=== PATIENT | female | born 1970 | race Caucasian/White ===

== ENCOUNTER 2019-05-24 16:50 | Observation (INO) | payer OTHER ==
[~2019-05-24] VITALS: Ht 160 cm; Wt 113.4 kg
[~2019-05-24 16:50] MED LIST: CRUTCH4 USE; HYDACE5 PO; IBUP800; IBUP800 PO; Imitrex25 MG PO; META800 PO; NAPR500 PO
[2019-05-24 17:38] LABS: BASOPHILS ABSOLUTE AUTO 0.03 K/mm3 (0.00-0.23); BASOPHILS PERCENT AUTO 1 % (0-2); EOSINOPHILS ABSOLUTE AUTO 0.13 K/mm3 (0.00-0.68); EOSINOPHILS PERCENT AUTO 3 % (0-6); Hematocrit 24.3 % (33.0-51.0); Hemoglobin 6.9 g/dL (11.5-16.0); IMMATURE GRAN ABSOLUTE AUTO 0.02 K/mm3 (0.00-0.10); IMMATURE GRAN PERCENT AUTO 0 % (0-1); LYMPHOCYTES ABSOLUTE AUTO 1.32 K/mm3 (0.84-5.20); LYMPHOCYTES PERCENT AUTO 28 % (21-46); MONOCYTES PERCENT AUTO 6 % (4-13); Mean Corpuscular HGB 21.3 pg (26.0-34.0); Mean Corpuscular HGB Conc 28.4 g/dL (31.5-36.5); Mean Corpuscular Volume 75 fL (80-100); Mean Platelet Volume 10.8 fL (9.1-12.4); NEUTROPHILS ABSOLUTE AUTO 2.96 K/mm3 (1.96-9.15); NEUTROPHILS PERCENT AUTO 62 % (41-73); Platelet Count 205 K/mm3 (150-400); RDW Coefficient Variation 21.3 % (11.7-14.2); RDW Standard Deviation 57.6 fL (35.1-46.3); Red Blood Cell Count 3.24 M/mm3 (3.80-5.20); White Blood Cell Count 4.76 K/mm3 (4.00-11.30)
[2019-05-24 18:07] LABS: Alanine Aminotransfer (ALT/SGP 16 U/L (12-78); Albumin, Blood 2.8 g/dL (3.4-5.0); Albumin/Globulin Ratio 0.9 (0.8-1.8); Alk Phos 84 U/L (50-136); Anion Gap 6 mmol/L (6-16); Aspartate Aminotrans (AST/SGOT 8 U/L (12-37); Bilirubin, Total 0.1 mg/dL (0.1-1.0); Blood Urea Nitrogen 11 mg/dL (8-24); Bun/Creatinine Ratio 10.9 (12.0-20.0); CO2, Blood 26 mmol/L (21-32); Calcium, Blood 8.5 mg/dL (8.5-10.1); Chloride, Blood 113 mmol/L (98-108); Creatinine, Blood 1.01 mg/dL (0.40-1.00); Globulin, Blood 3.2 g/dL (2.2-4.0); Glomerular Filtration Rate >60 (60-); Glucose, Blood 93 mg/dL (70-99); Potassium, Blood 3.6 mmol/L (3.5-5.5); Sodium, Blood 145 mmol/L (136-145)
--- NOTE | 2019-05-24 22:00 | NUR ---
BP: PT BP NOTED ELEVATED, TRENDING UP, 185/109, PT ASYMPTOMATIC. MD NOTIFIED, VITALS REVIEWED, NEW ORDER FOR METOPROLOL XL RECEIVED. PLAN TO MEDICATED AND CONT TO MONITOR.
--- NOTE | 2019-05-24 22:40 | NUR ---
FIRST UNIT OF PRBC COMPLETED. PT KHALIDA WELL, LUNGS CLEAR T/O. BP CONT TO BE ELEVATED, PT ASYMPTOMATIC. PLAN TO START SECOND UNIT PER ORDERS.
--- NOTE | 2019-05-25 02:11 | NUR ---
SECOND UNIT OF PRBC COMPLETED. PT KHALIDA WELL. MIVF STARTED PER ORDERS.
[2019-05-25 04:13] LABS: BASOPHILS ABSOLUTE AUTO 0.04 K/mm3 (0.00-0.23); BASOPHILS PERCENT AUTO 1 % (0-2); EOSINOPHILS ABSOLUTE AUTO 0.18 K/mm3 (0.00-0.68); EOSINOPHILS PERCENT AUTO 3 % (0-6); Hematocrit 26.9 % (33.0-51.0); IMMATURE GRAN ABSOLUTE AUTO 0.02 K/mm3 (0.00-0.10); IMMATURE GRAN PERCENT AUTO 0 % (0-1); LYMPHOCYTES ABSOLUTE AUTO 1.44 K/mm3 (0.84-5.20); LYMPHOCYTES PERCENT AUTO 24 % (21-46); MONOCYTES ABSOLUTE AUTO 0.44 K/mm3 (0.16-1.47); MONOCYTES PERCENT AUTO 7 % (4-13); Mean Corpuscular HGB 22.4 pg (26.0-34.0); Mean Corpuscular HGB Conc 29.7 g/dL (31.5-36.5); Mean Corpuscular Volume 75 fL (80-100); NEUTROPHILS ABSOLUTE AUTO 3.87 K/mm3 (1.96-9.15); NEUTROPHILS PERCENT AUTO 65 % (41-73); Platelet Count 210 K/mm3 (150-400); RDW Coefficient Variation 21.1 % (11.7-14.2); Red Blood Cell Count 3.57 M/mm3 (3.80-5.20); White Blood Cell Count 5.99 K/mm3 (4.00-11.30)
--- NOTE | 2019-05-25 07:20 | NUR ---
PT HAD NO ACUTE CHANGES T/O NIGHT; BP REMAINS ELEVATED, PT ASYMPTOMATIC. PT KHALIDA TRANSFUSIONS WELL. PT HAD ONLY SCANT VAGINAL BLEEDING, VERY LIGHT SPOTTING ON LICO PAD. PT DENIES DIZZINESS WHEN UP. MIVF CONT PER ORDERS. PT USING CALL LIGHT FOR ASSISTANCE, REP GIVEN TO DAY RN.
[2019-05-25] MEDS ORDERED: FERSU300 PO (08:38)
[2019-05-25] MEDS ORDERED: METO100ER PO (08:39)
[2019-05-25] MEDS ORDERED: Microgestin Fe1 EAC1 PO (08:40)
--- NOTE | 2019-05-25 12:16 | NUR ---
BP CONT. TO BE ELEVATED AT 181/93, HR 72 AFTER HYDRALAZINE GIVEN, DR. Diana ÁLVAREZ NOTIFIED, PT WANTS TO GO HOME, METOPROLOL 50MG PO ORDERED TO BE GIVEN PRIOR TO DC, PT HAS F/U APPT. W/ DR. BROWN AT 0815 IN AM, PT NOTIFIED.
== END 2019-05-25 14:30 | disposition home or self-care (01) ==
LOC: ER 16:50 → SURS 16:51 → ER 18:48 → SURS 18:48
PROVIDERS: Emergency Medicine; ADMIT Obstetrics & Gynecology
DX: N80.0 Endometriosis of uterus (principal); D50.9 Iron deficiency anemia, unspecified; I10 Essential (primary) hypertension; G43.909 Migraine, unspecified, not intractable, without status migrainosus; Z88.8 Allergy status to other drugs, medicaments and biological substances
CPT/HCPCS: 36415; 36430; 76830; 76856; 80053; 84703; 85025; 86850; 86900; 86901; 86923; 96360; 96361; 99285-25; J0360; J7030; J7120; P9016

== ENCOUNTER 2019-05-28 15:10 | Emergency (ER) | payer OTHER ==
[~2019-05-28] VITALS: Ht 157.5 cm; Wt 113.4 kg
[~2019-05-28 15:10] MED LIST changes: +FERSU300 PO; +METO100ER PO; +Microgestin Fe1 EAC1 PO
[2019-05-28 15:43] LABS: BASOPHILS ABSOLUTE AUTO 0.05 K/mm3 (0.00-0.23); BASOPHILS PERCENT AUTO 1 % (0-2); EOSINOPHILS ABSOLUTE AUTO 0.25 K/mm3 (0.00-0.68); EOSINOPHILS PERCENT AUTO 4 % (0-6); Hematocrit 29.5 % (33.0-51.0); Hemoglobin 8.7 g/dL (11.5-16.0); IMMATURE GRAN ABSOLUTE AUTO 0.02 K/mm3 (0.00-0.10); IMMATURE GRAN PERCENT AUTO 0 % (0-1); LYMPHOCYTES ABSOLUTE AUTO 1.57 K/mm3 (0.84-5.20); LYMPHOCYTES PERCENT AUTO 22 % (21-46); MONOCYTES PERCENT AUTO 7 % (4-13); Mean Corpuscular HGB 22.5 pg (26.0-34.0); Mean Corpuscular HGB Conc 29.5 g/dL (31.5-36.5); Mean Corpuscular Volume 76 fL (80-100); Mean Platelet Volume 10.9 fL (9.1-12.4); NEUTROPHILS PERCENT AUTO 66 % (41-73); Platelet Count 233 K/mm3 (150-400); RDW Coefficient Variation 21.1 % (11.7-14.2); Red Blood Cell Count 3.87 M/mm3 (3.80-5.20); White Blood Cell Count 7.09 K/mm3 (4.00-11.30)
[2019-05-28 16:41] LABS: Alanine Aminotransfer (ALT/SGP 20 U/L (12-78); Albumin/Globulin Ratio 0.9 (0.8-1.8); Alk Phos 84 U/L (50-136); Anion Gap 7 mmol/L (6-16); Aspartate Aminotrans (AST/SGOT 13 U/L (12-37); Bilirubin, Total 0.5 mg/dL (0.1-1.0); Blood Urea Nitrogen 14 mg/dL (8-24); Bun/Creatinine Ratio 14.6 (12.0-20.0); CO2, Blood 22 mmol/L (21-32); Calcium, Blood 8.2 mg/dL (8.5-10.1); Chloride, Blood 112 mmol/L (98-108); Creatinine, Blood 0.96 mg/dL (0.40-1.00); Globulin, Blood 3.4 g/dL (2.2-4.0); Glomerular Filtration Rate >60 (60-); Glucose, Blood 102 mg/dL (70-99); Potassium, Blood 3.9 mmol/L (3.5-5.5); Sodium, Blood 141 mmol/L (136-145); Total Protein, Blood 6.4 g/dL (6.4-8.2)
[2019-05-28] MEDS ORDERED: MEDR5 PO (17:48)
[2019-05-28 18:04] LABS: Percent Saturation 4.7 % (15.0-50.0)
[2019-05-28 18:17] LABS: Source, Urine Clean Catch
[2019-05-28 18:20] LABS: Bilirubin, Urine Neg (Neg); Blood, Urine 5+ (Neg); Glucose Qualitative, Urine Neg (Neg); Ketones, Urine Neg (Neg); Leukocyte Esterase, Urine 1+ (Neg); Nitrite, Urine Neg (Neg); Protein, Urine Neg (Neg); Urobilinogen, Urine NORM (Normal)
[2019-05-28 18:32] LABS: Appearance, Urine Hazy (Clear); Color, Urine Yellow (P-Yellow)
[2019-05-28 18:34] LABS: Red Blood Cells, Urine TNTC /hpf (0-2); Squamous Epithelial Cells Few /hpf (Few)
[2019-05-28 18:35] LABS: Bacteria Few /hpf
== END 2019-05-28 18:15 | disposition home or self-care (01) ==
LOC: ER 15:10
PROVIDERS: Emergency Medicine; Physician Assistant
DX: N93.9 Abnormal uterine and vaginal bleeding, unspecified (principal); D64.9 Anemia, unspecified; Z88.1 Allergy status to other antibiotic agents; Z88.8 Allergy status to other drugs, medicaments and biological substances; Z79.899 Other long term (current) drug therapy
CPT/HCPCS: 36415; 80053; 81001; 83540; 83550; 85025; 87086; 99284

== ENCOUNTER → 2021-03-03 | Outpatient (CLI) | payer OTHER ==
[~2021-03-03] MED LIST changes: +MEDR5 PO; +Ventolin/Prove6.7 GM INH
[2021-03-03 18:43] LABS: BASOPHILS ABSOLUTE AUTO 0.03 K/mm3 (0.00-0.23); BASOPHILS PERCENT AUTO 1 % (0-2); EOSINOPHILS ABSOLUTE AUTO 0.15 K/mm3 (0.00-0.68); EOSINOPHILS PERCENT AUTO 2 % (0-6); Hematocrit 26.3 % (33.0-51.0); IMMATURE GRAN ABSOLUTE AUTO 0.03 K/mm3 (0.00-0.10); IMMATURE GRAN PERCENT AUTO 1 % (0-1); LYMPHOCYTES ABSOLUTE AUTO 1.32 K/mm3 (0.84-5.20); LYMPHOCYTES PERCENT AUTO 20 % (21-46); MONOCYTES ABSOLUTE AUTO 0.59 K/mm3 (0.16-1.47); MONOCYTES PERCENT AUTO 9 % (4-13); Mean Corpuscular HGB 16.6 pg (26.0-34.0); Mean Corpuscular HGB Conc 26.6 g/dL (31.5-36.5); Mean Corpuscular Volume 62 fL (80-100); NEUTROPHILS PERCENT AUTO 68 % (41-73); Platelet Count 257 K/mm3 (150-400); RDW Coefficient Variation 20.2 % (11.7-14.2); RDW Standard Deviation 44.7 fL (35.1-46.3); Red Blood Cell Count 4.22 M/mm3 (3.80-5.20); White Blood Cell Count 6.62 K/mm3 (4.00-11.30)
[2021-03-03 18:52] LABS: Albumin, Blood 3.4 g/dL (3.4-5.0); Albumin/Globulin Ratio 0.9 (0.8-1.8); Bilirubin, Total 0.6 mg/dL (0.1-1.0); Bun/Creatinine Ratio 11.4 (12.0-20.0); Creatinine, Blood 1.23 mg/dL (0.40-1.00); Globulin, Blood 3.9 g/dL (2.2-4.0); Potassium, Blood 4.1 mmol/L (3.5-5.5); Total Protein, Blood 7.3 g/dL (6.4-8.2)
== END | disposition home or self-care (01) ==
LOC: LAB 16:00 → LAB SHORT 16:00
PROVIDERS: Family Medicine
DX: R10.13 Epigastric pain (principal)
CPT/HCPCS: 80053; 83690; 85025

== ENCOUNTER 2021-03-04 13:01 | Emergency (ER) | payer OTHER ==
[~2021-03-04] VITALS: Ht 157.5 cm; Wt 97.5 kg
[~2021-03-04 13:01] MED LIST changes: -Ventolin/Prove6.7 GM INH
[2021-03-04] MEDS ORDERED: Ventolin/Prove6.7 GM INH (13:46)
[2021-03-04 13:52] LABS: BASOPHILS ABSOLUTE AUTO 0.06 K/mm3 (0.00-0.23); BASOPHILS PERCENT AUTO 1 % (0-2); EOSINOPHILS ABSOLUTE AUTO 0.19 K/mm3 (0.00-0.68); EOSINOPHILS PERCENT AUTO 3 % (0-6); Hematocrit 27.9 % (33.0-51.0); Hemoglobin 7.4 g/dL (11.5-16.0); IMMATURE GRAN ABSOLUTE AUTO 0.01 K/mm3 (0.00-0.10); IMMATURE GRAN PERCENT AUTO 0 % (0-1); IMMATURE RETIC FRACTION 21.7 % (2.3-16.0); LYMPHOCYTES ABSOLUTE AUTO 1.14 K/mm3 (0.84-5.20); LYMPHOCYTES PERCENT AUTO 18 % (21-46); MONOCYTES PERCENT AUTO 6 % (4-13); Mean Corpuscular HGB 16.7 pg (26.0-34.0); Mean Corpuscular HGB Conc 26.5 g/dL (31.5-36.5); Mean Corpuscular Volume 63 fL (80-100); NEUTROPHILS ABSOLUTE AUTO 4.66 K/mm3 (1.96-9.15); NEUTROPHILS PERCENT AUTO 72 % (41-73); Platelet Count 271 K/mm3 (150-400); RDW Standard Deviation 43.8 fL (35.1-46.3); RETIC HGB EQUIVALENT 16.1 pg (28.20-36.60); RETICULOCYTE ABSOLUTE 0.0594 M/mm3 (0.0200-0.1100); RETICULOCYTE COUNT PERCENT 1.35 % (0.50-2.50); Red Blood Cell Count 4.44 M/mm3 (3.80-5.20); White Blood Cell Count 6.46 K/mm3 (4.00-11.30)
[2021-03-04 13:56] LABS: Albumin, Blood 3.4 g/dL (3.4-5.0); Albumin/Globulin Ratio 0.9 (0.8-1.8); Bilirubin, Total 0.5 mg/dL (0.1-1.0); Bun/Creatinine Ratio 10.8 (12.0-20.0); Calcium, Blood 8.9 mg/dL (8.5-10.1); Creatinine, Blood 1.2 mg/dL (0.40-1.00); Globulin, Blood 3.6 g/dL (2.2-4.0); Potassium, Blood 3.9 mmol/L (3.5-5.5)
[2021-03-04 13:57] LABS: Mean Platelet Volume 10.5 fL (9.1-12.4)
[2021-03-04 13:59] LABS: Percent Saturation 2.8 % (15.0-50.0)
== END 2021-03-04 14:26 | disposition home or self-care (01) ==
LOC: ER 13:01
PROVIDERS: Physician Assistant
DX: D64.9 Anemia, unspecified (principal); I10 Essential (primary) hypertension
CPT/HCPCS: 36415; 80053; 83540; 83550; 85025; 85045; 86850; 86900; 86901; 99283

== ENCOUNTER 2021-11-15 05:56 | Inpatient (IN) | payer OTHER ==
[~2021-11-15] VITALS: Ht 157.5 cm; Wt 102.2 kg
[~2021-11-15 05:56] MED LIST changes: +Ventolin/Prove6.7 GM INH
[2021-11-15 06:17] LABS: BASOPHILS ABSOLUTE AUTO 0.04 K/mm3 (0.00-0.23); BASOPHILS PERCENT AUTO 1 % (0-2); EOSINOPHILS ABSOLUTE AUTO 0.22 K/mm3 (0.00-0.68); EOSINOPHILS PERCENT AUTO 3 % (0-6); Hematocrit 29.9 % (33.0-51.0); Hemoglobin 8.3 g/dL (11.5-16.0); IMMATURE GRAN ABSOLUTE AUTO 0.02 K/mm3 (0.00-0.10); IMMATURE GRAN PERCENT AUTO 0 % (0-1); LYMPHOCYTES PERCENT AUTO 18 % (21-46); MONOCYTES ABSOLUTE AUTO 0.48 K/mm3 (0.16-1.47); MONOCYTES PERCENT AUTO 7 % (4-13); Mean Corpuscular HGB 18.7 pg (26.0-34.0); Mean Corpuscular HGB Conc 27.8 g/dL (31.5-36.5); Mean Corpuscular Volume 67 fL (80-100); NEUTROPHILS ABSOLUTE AUTO 5.05 K/mm3 (1.96-9.15); NEUTROPHILS PERCENT AUTO 71 % (41-73); Platelet Count 210 K/mm3 (150-400); RDW Standard Deviation 47.1 fL (35.1-46.3); Red Blood Cell Count 4.44 M/mm3 (3.80-5.20); White Blood Cell Count 7.11 K/mm3 (4.00-11.30)
[2021-11-15 06:22] LABS: Mean Platelet Volume 11.1 fL (9.1-12.4)
[2021-11-15 06:41] LABS: Albumin, Blood 2.4 g/dL (3.4-5.0); Albumin/Globulin Ratio 0.7 (0.8-1.8); Bilirubin, Total 1.2 mg/dL (0.1-1.0); Bun/Creatinine Ratio 16.8 (12.0-20.0); Calcium, Blood 8.8 mg/dL (8.5-10.1); Creatinine, Blood 1.07 mg/dL (0.40-1.00); Globulin, Blood 3.3 g/dL (2.2-4.0); Potassium, Blood 3.8 mmol/L (3.5-5.5); Total Protein, Blood 5.7 g/dL (6.4-8.2); Troponin I 0.039 ng/mL (0.000-0.040)
[2021-11-15 11:58] LABS: Anti-Xa UFH, PHA Monitoring <0.10 IU/mL; International Normalized Ratio 1.29; Prothrombin Time Results 13.3 Sec (9.7-11.5)
[2021-11-15 12:48] LABS: Percent Saturation 5.8 % (15.0-50.0)
--- NOTE | 2021-11-15 15:04 | NUR ---
Echocardiogram completed.
--- NOTE | 2021-11-15 17:45 | NUR ---
pt arrived to 309 via gurney from ed. report obtained, pt is a/ox3, pleasant and cooperative with care, able to stand and transfer to bsc indep, lungs are clear, slightly course in bases, on r/a, resp even and unlabored, no cough noted, hrr, will place tele on, was reported that she was sr with pvc's, 3+ edema noted to b/l le, cap refill <4 sec, vs stable, afebrile, iv infusing heperin gtt as ordered, btx4, last bm yesterday, voids without diff, skin c/w/d, shirley cee, oriented to room layout and call system. call light in reach.
--- NOTE | 2021-11-15 23:26 | NUR ---
TRANSFER: PATIENT HAS A CRITICAL TROPONIN OF 1.42, HEART RATE AND BLOOD PRESSURE WERE TRENDING UPWARDS. PATIENT IS DIAPHORETIC WITH NO COMPLAINTS OF CHEST PAIN. DR CROUCH IS NOTIFIED. ORDERS TO TRANSFER PATIENT TO ICU, NPO AND A CARDIOLOGY CONSULT FOR THE MORNING. REPORT WAS CALLED TO ELLIE CALLAHAN IN PCU.
[2021-11-15 23:54] LABS: U Amphetamine Screen DETECTED; U Methamphetamine Screen DETECTED
[2021-11-15 23:55] LABS: U Barbituate Screen Not Detected; U Benzodiazapine Screen Not Detected; U Buprenorphine Screen Not Detected; U Cannabinoids Screen Not Detected; U Cocaine Screen Not Detected; U Methadone Screen Not Detected; U Opiates Screen Not Detected; U Oxycodone Screen Not Detected; U Phencyclidine Screen Not Detected; U Propoxyphene Screen Not Detected
[2021-11-16 02:26] LABS: BASOPHILS ABSOLUTE AUTO 0.05 K/mm3 (0.00-0.23); BASOPHILS PERCENT AUTO 1 % (0-2); EOSINOPHILS PERCENT AUTO 3 % (0-6); Hematocrit 29.8 % (33.0-51.0); Hemoglobin 8.6 g/dL (11.5-16.0); IMMATURE GRAN ABSOLUTE AUTO 0.02 K/mm3 (0.00-0.10); IMMATURE GRAN PERCENT AUTO 0 % (0-1); LYMPHOCYTES ABSOLUTE AUTO 1.49 K/mm3 (0.84-5.20); LYMPHOCYTES PERCENT AUTO 19 % (21-46); MONOCYTES ABSOLUTE AUTO 0.63 K/mm3 (0.16-1.47); MONOCYTES PERCENT AUTO 8 % (4-13); Mean Corpuscular HGB 18.9 pg (26.0-34.0); Mean Corpuscular HGB Conc 28.9 g/dL (31.5-36.5); Mean Corpuscular Volume 66 fL (80-100); NEUTROPHILS ABSOLUTE AUTO 5.47 K/mm3 (1.96-9.15); NEUTROPHILS PERCENT AUTO 70 % (41-73); Platelet Count 232 K/mm3 (150-400); RDW Coefficient Variation 20.3 % (11.7-14.2); RDW Standard Deviation 46.4 fL (35.1-46.3); Red Blood Cell Count 4.54 M/mm3 (3.80-5.20); White Blood Cell Count 7.86 K/mm3 (4.00-11.30)
[2021-11-16 02:47] LABS: Alanine Aminotransfer (ALT/SGP 39 U/L (12-78); Albumin, Blood 2.5 g/dL (3.4-5.0); Albumin/Globulin Ratio 0.8 (0.8-1.8); Alk Phos 99 U/L (50-136); Anion Gap 8 mmol/L (6-16); Aspartate Aminotrans (AST/SGOT 31 U/L (12-37); Blood Urea Nitrogen 23 mg/dL (8-24); Bun/Creatinine Ratio 17.3 (12.0-20.0); CHOL/HDL RATIO 3.8; CO2, Blood 24 mmol/L (21-32); Calcium, Blood 8.9 mg/dL (8.5-10.1); Chloride, Blood 108 mmol/L (98-108); Cholesterol 125 mg/dL (50-200); Creatinine, Blood 1.33 mg/dL (0.40-1.00); Globulin, Blood 3.3 g/dL (2.2-4.0); Glomerular Filtration Rate 42 (60-); Glucose, Blood 103 mg/dL (70-99); HDL Cholesterol 33 mg/dL (>39); LDL/HDL RATIO 2.3; Low Density Lipoprotein Chol 76 mg/dL (0-110); Magnesium, Blood 1.6 mg/dL (1.6-2.4); Potassium, Blood 3.9 mmol/L (3.5-5.5); Sodium, Blood 140 mmol/L (136-145); Total Protein, Blood 5.8 g/dL (6.4-8.2); Triglycerides 81 mg/dL (30-160); Very Low Density Lipoprot Chol 16 mg/dL (6-32)
--- NOTE | 2021-11-16 05:17 | NUR ---
PATIENT ARRIVED AT 2328 THIS EVENING ABLE TO TRANSFER TO BED, HEP GTT RUNNING AT 15U/KG/ML AROUND 0200 HEP GTT WAS INCREASED TO 17U/KG/ML WITH A 2000 BOLUS, PATIENT IV(S) FAILED AND A SAM POWERGLIDE WAS INSERTED BY JUAN, PULLMAN CONDUCTOR NURSE, PATIENT REQUESTED THAT HER MOTHER BOBBY BE CALLED AT [phone] TO INFORM HER THAT SHE HAS BEEN ADMITTED TO PCU FROM MEDICAL FLOOR, I WAS ABLE TO GET A HOLD OF BOBBY TO INFORM HER THAT MEI HAS BEEN ADMITTED. LUNGS ARE COARSE UPPER LOBES AND DIMINISHED LOWER LOBES, ABDOMEN IS DISTENDED SOFT NONTENDER HYPOACTIVE BOWEL TONES, CURRENTLY IS NPO, NO EDEMA NOTED AND SKIN IS INTACT, PATIENT TOXICOLOGY SCREEN CAME BACK POSITIVE, PLEASE REFER TO LABS, PATIENT WAS HYPERTENSIVE PRIOR TO TRANSFERRING, VITALS HAVE BEEN STABLE NO PRN PERMISSIVE HTN NOTED IN MAR WILL REFER TO DAYSHIFT, CARDIOLOGY CONSULT WAS CALLED IN PRIOR TO TRANSFER AND CONFIRMED BY ORDER. PATIENT IS ALERT, FLAT AFFECT, ACCUSATORY AT TIMES, AND TEARFUL. TALKING SOFT AND SLOW SEEMS TO REASSURE HER AND MAKES A DIFFERENCE, OTHERWISE VERY PLEASANT AND FOLLOW COMMANDS,
[2021-11-16 12:28] LABS: Influenza A, PCR NEGATIVE (NEGATIVE); Influenza B, PCR NEGATIVE (NEGATIVE); Resp Syncytial Virus, PCR NEGATIVE (NEGATIVE)
[2021-11-16 12:38] LABS: SARS-Cov-2 (COVID-19) PCR, MMC POSITIVE (NEGATIVE)
--- NOTE | 2021-11-16 18:47 | NUR ---
PHARMACY CONTACTED THIS RN ABOUT HEPARIN GTT. HEPARIN TO REMAIN AT 19U/KG/HR.
--- NOTE | 2021-11-16 19:08 | NUR ---
SHIFT SUMMARY PT A/O X4 AND COOPERATIVE OF CARE. PT HAS FLAT AFFECT AND SEEMS WITHDRAWN. ANSWERS QUESTIONS BRIEF BUT APPROPIATE. PT CALLS APPROPIATLEY. VSS T/O SHIFT WITH O2 SATS >97% 2L NC. O2 TITIRATED TO 1L NC. PT WAS NPO AWAITING ANGIO, COVID TEST DONE PRIOR TO PRCEDURE, CAME BACK COVID POSITIVE. ANGIO RESCHEDULED FOR AM ON 11/17/21. PT HAD DINNER AND TO BE NPO AFTER MIDNIGHT FOR PROCEDURE. NO REPORTS OF CHEST PAIN/PRESSURE T/O SHIFT. NO REPORT OF DYSPNEA/SOB T/O SHIFT. PT UP TO BEDSIDE COMMODE WITH SBA, TOLERATED WELL.
[2021-11-17 02:21] LABS: BASOPHILS ABSOLUTE AUTO 0.05 K/mm3 (0.00-0.23); BASOPHILS PERCENT AUTO 1 % (0-2); EOSINOPHILS PERCENT AUTO 4 % (0-6); Hematocrit 29.8 % (33.0-51.0); Hemoglobin 8.6 g/dL (11.5-16.0); IMMATURE GRAN ABSOLUTE AUTO 0.03 K/mm3 (0.00-0.10); IMMATURE GRAN PERCENT AUTO 0 % (0-1); LYMPHOCYTES ABSOLUTE AUTO 1.69 K/mm3 (0.84-5.20); LYMPHOCYTES PERCENT AUTO 22 % (21-46); MONOCYTES PERCENT AUTO 10 % (4-13); Mean Corpuscular HGB Conc 28.9 g/dL (31.5-36.5); Mean Corpuscular Volume 66 fL (80-100); NEUTROPHILS ABSOLUTE AUTO 4.84 K/mm3 (1.96-9.15); NEUTROPHILS PERCENT AUTO 63 % (41-73); Platelet Count 241 K/mm3 (150-400); RDW Coefficient Variation 20.6 % (11.7-14.2); RDW Standard Deviation 47.1 fL (35.1-46.3); Red Blood Cell Count 4.52 M/mm3 (3.80-5.20); White Blood Cell Count 7.71 K/mm3 (4.00-11.30)
[2021-11-17 02:24] LABS: Mean Platelet Volume 10.9 fL (9.1-12.4)
[2021-11-17 02:38] LABS: Albumin, Blood 2.4 g/dL (3.4-5.0); Albumin/Globulin Ratio 0.7 (0.8-1.8); Bilirubin, Total 0.9 mg/dL (0.1-1.0); Bun/Creatinine Ratio 13.6 (12.0-20.0); Calcium, Blood 8.9 mg/dL (8.5-10.1); Creatinine, Blood 1.32 mg/dL (0.40-1.00); Globulin, Blood 3.3 g/dL (2.2-4.0); Potassium, Blood 3.7 mmol/L (3.5-5.5); Total Protein, Blood 5.7 g/dL (6.4-8.2)
--- NOTE | 2021-11-17 06:07 | NUR ---
PER PHARMACY, PT HAS LATEX ALLERGY AND FENTANYL HAD A LATEX RUBBER STOPPER. DR FINK NOTIFIED AND STATES TO GIVE FENTANYL DIRECTED PRN. SINDY WINTER
--- NOTE | 2021-11-17 09:28 | NUR ---
MORNING UPDATE AT [facility] 0815, THIS RN ENTERED PT ROOM FOR MORNING VITALS, ASSESSMENT AND MEDICATIONS. WHILE TAKING PT VITALS, PT WAS HEARD "TAKE IT OFF NOW." PT HAD ARM WITH BP CUFF EXTENDED AND ONCE AGIAN DEMANDED "TAKE THIS THING OFF OF ME NOW." THIS RN INFORMED PT THAT BP READING IS ALMOST DONE AND THE CUFF WILL BE REMOVED ONCE IT IS DONE. AFTER THE BP WAS MEASURED, THE CUFF WAS REMOVED. THIS RN BEGAN TO CHANGE THE BATTERY IN THE TELE BOX, PT TOLD THIS RN "I WANT OU TO LEAVE."THIS RN ASKED PT IF SOMETHING WAS WRONG AND BEGAN TO INFORM THE PT THAT THIS RN WAS THERE TO GIVE MORNING MEDS AND DO AN ASSESSMENT OF THE PT. PT STATED "NO I JUST WANT YOU TO LEAVE ME ALONE." AFTER ASKING THE PT WHY, PT STATED "I NEVER GOT ANY PAIN MEDS. I ASKED AND NEVER GOT ANY." THIS RN ASKED IF THE PT WAS CURRENTLY HAVING PAIN, PT STATED "NO, IT WAS AHILE AGO. I WAS HAVE A HEART ATTACK AND I DID NOT GET ANY PAIN MEDS." THIS RN ASKED IF THE PT WAS HAVING CHEST PAIN AT THIS POINT, PT STATED "NO. CAN YOU JUST LEAVE?"THIS RN LEFT PT ROOM AND INFORMED ECHO TECH OF INCIDENT. ECHO TECH INSTRUCTED THIS RN TO GIVE PT SOME TIME.
--- NOTE | 2021-11-17 19:30 | NUR ---
SHIFT SUMMARY PT A/O X4. AT BEGINNING OF SHIFT, PT ASKED TO BE LEFT ALONE, SEE MORNING NOTES. VITALS SIGNS STABLE THROUGHOUT SHIFT WITH O2 SATS >94%. PT WAS OF O2 FOR PORTION OF DAY, SATS DROPPED TO 89% WHILE SLEEPING AND ON RA. PT REPORTED THAT SHE HAD CHEST VERY CHAZ IN THE MORNING BEFORE SHIFT CHANGE, PAIN SUBSIDED ON ITS OWN. NO REPORTS OF CHEST PAIN/PRESSURE DURING THIS SHIFT. NO REPORT OF SOB/DYSPNEA THROUGHOUT SHIFT. PT WAS UP TO SHOWER WITH SBA OF AID.
--- NOTE | 2021-11-17 20:10 | NUR ---
heparin drip stopped at 1914 @ change of shift , pt noninteractive, c/o about pain medication she said she never got this am, but per day rn, meds were offered and pt refused at that time. pt staes "i'll just call 911!" this grant writer asked pt why she would be calling 911 when she was already in the hospital and had refused pain meds this morning when offered. pt refused to answer, refused to interact with rn at this point. refused 2100 medication, and told this grant writer to "just get out of my room" Covid precautions maintained, did allow rn to obtain vs. denies any pain currently, and states "i dont trust you." it was explained at length this am about the delay in pain med order due to her latex allergy and the fact that fentanyl was packaged wiith a rubber altex stopper and this needed to be clarified with md. pt refuses to interact. will attempt assessment at a later time. sravan nina
--- NOTE | 2021-11-18 00:17 | NUR ---
PATIENT STATES SHE FEELS FLUTTER IN CHEST, DENIES PAIN, RHYTHM IS NORMAL SINUS. WILL MONITOR
--- NOTE | 2021-11-18 02:37 | NUR ---
SHIFT SUMMARY: PT NONCOMMUNICATIVE AND WITHDRAWN IN EARLY PART OF SHIFT, SUSPICIOUS OF MEDICATIONS BEING ADMINISTERED AND QUESTIONS MEDICATIONS AND DOSAGES EVEN THOUGH THERE HAVE BEEN NO CHANGES. TELE SHOWS SR, VSS, ABLE TO VERBALIZE NEEDS WHEN SHE WANTS SOMETHING. TO BR FOR URINATION/STOOL WITH STEADY GAIT. DENIES PAIN OR DISCOMFORT, BED LOCKED AND LOW, CALL ATKINSON IN REACH. PT RESTED MOST OF NIGHT. SINDY WINTER
[2021-11-18] MEDS ORDERED: Acetaminophen650 M1 PO (11:53)
[2021-11-18] MEDS ORDERED: ASCORBIC ACID500 MG PO (11:55)
[2021-11-18] MEDS ORDERED: Aspir 8181 MG PO (11:57)
[2021-11-18] MEDS ORDERED: CLOP75 PO (11:58)
[2021-11-18] MEDS ORDERED: FERSU300 PO (11:59)
[2021-11-18] MEDS ORDERED: Lisinopril2.5 MG PO (12:00)
[2021-11-18] MEDS ORDERED: METOPROLOL TARTRATE PO (12:00)
[2021-11-18] MEDS ORDERED: FURO40 PO (12:00)
== END 2021-11-18 13:16 | disposition home or self-care (01) | DRG 280 ==
LOC: ER 05:56 → ERHOLD 05:57 → MEDS 05:57 → PCU 23:25
PROVIDERS: Emergency Medicine; Internal Medicine Cardiovascular Disease; Nurse Practitioner Acute Care; ADMIT Internal Medicine
PROC: 8E0ZXY6 Isolation (ICD-10-PCS; principal; 2021-11-16)
DX: I21.4 Non-ST elevation (NSTEMI) myocardial infarction (principal); U07.1 COVID-19; I50.21 Acute systolic (congestive) heart failure; I42.0 Dilated cardiomyopathy; I13.0 Hypertensive heart and chronic kidney disease with heart failure and stage 1 through stage 4 chronic kidney disease, or unspecified chronic kidney disease; N18.30 Chronic kidney disease, stage 3 unspecified; F15.10 Other stimulant abuse, uncomplicated; Z91.14 Patient's other noncompliance with medication regimen; D50.9 Iron deficiency anemia, unspecified; J45.909 Unspecified asthma, uncomplicated; Z98.51 Tubal ligation status; Z88.8 Allergy status to other drugs, medicaments and biological substances; Z91.040 Latex allergy status; I08.1 Rheumatic disorders of both mitral and tricuspid valves; G43.909 Migraine, unspecified, not intractable, without status migrainosus
CPT/HCPCS: 0241U; 36415; 71045; 71260; 80053; 80061; 82728; 83036; 83540; 83550; 83735; 83880; 84443; 84484; 85025; 85520; 85610; 93005; 93010; 93306; 96365-59; 96366; 96375-59; 96376; 96376-59; 99285-25; A9270; C1751; G0378; J1644; J1650; J1940; Q9967

== ENCOUNTER → 2022-01-18 | Outpatient (CLI) | payer OTHER ==
[~2022-01-18] MED LIST changes: +ASCORBIC ACID500 MG PO; +Acetaminophen650 M1 PO; +Aspir 8181 MG PO; +CLOP75 PO; +FURO40 PO; +Lisinopril2.5 MG PO; +METOPROLOL TARTRATE PO
[2022-01-18 14:21] LABS: Protein, Urine Quantitative 10.3 mg/dL (0.0-11.9)
[2022-01-18 14:37] LABS: Microalbumin, Urine Quant. <5.000 mg/L (0.000-20.000)
== END ==
LOC: LAB SHORT 04:30 → LAB FUT 01-16 14:35
PROVIDERS: Internal Medicine Nephrology
DX: N18.30 Chronic kidney disease, stage 3 unspecified (principal); D63.1 Anemia in chronic kidney disease; N25.81 Secondary hyperparathyroidism of renal origin; E55.9 Vitamin D deficiency, unspecified; E78.00 Pure hypercholesterolemia, unspecified; R76.9 Abnormal immunological finding in serum, unspecified; R94.5 Abnormal results of liver function studies; R94.6 Abnormal results of thyroid function studies; D51.8 Other vitamin B12 deficiency anemias; D52.8 Other folate deficiency anemias; D50.9 Iron deficiency anemia, unspecified
CPT/HCPCS: 81050; 82043; 82570; 84156

== ENCOUNTER 2022-04-22 00:48 | Inpatient (IN) | payer OTHER ==
[~2022-04-22] VITALS: Ht 160 cm; Wt 90.0 kg
[2022-04-22 01:26] LABS: BASOPHILS ABSOLUTE AUTO 0.04 K/mm3 (0.00-0.23); BASOPHILS PERCENT AUTO 0 % (0-2); EOSINOPHILS ABSOLUTE AUTO 0.16 K/mm3 (0.00-0.68); EOSINOPHILS PERCENT AUTO 2 % (0-6); Hematocrit 29.4 % (33.0-51.0); IMMATURE GRAN ABSOLUTE AUTO 0.03 K/mm3 (0.00-0.10); IMMATURE GRAN PERCENT AUTO 0 % (0-1); LYMPHOCYTES ABSOLUTE AUTO 1.03 K/mm3 (0.84-5.20); LYMPHOCYTES PERCENT AUTO 11 % (21-46); MONOCYTES ABSOLUTE AUTO 0.67 K/mm3 (0.16-1.47); MONOCYTES PERCENT AUTO 7 % (4-13); Mean Corpuscular HGB 18.2 pg (26.0-34.0); Mean Corpuscular HGB Conc 27.2 g/dL (31.5-36.5); Mean Corpuscular Volume 67 fL (80-100); NEUTROPHILS ABSOLUTE AUTO 7.77 K/mm3 (1.96-9.15); NEUTROPHILS PERCENT AUTO 80 % (41-73); Platelet Count 314 K/mm3 (150-400); RDW Coefficient Variation 20.6 % (11.7-14.2); RDW Standard Deviation 48.2 fL (35.1-46.3); Red Blood Cell Count 4.39 M/mm3 (3.80-5.20)
[2022-04-22 01:27] LABS: Mean Platelet Volume 11.6 fL (9.1-12.4)
[2022-04-22 01:39] LABS: U Amphetamine Screen DETECTED; U Barbituate Screen Not Detected; U Benzodiazapine Screen Not Detected; U Buprenorphine Screen Not Detected; U Cannabinoids Screen Not Detected; U Cocaine Screen Not Detected; U Methadone Screen Not Detected; U Methamphetamine Screen DETECTED; U Opiates Screen Not Detected; U Oxycodone Screen Not Detected; U Phencyclidine Screen Not Detected; U Propoxyphene Screen Not Detected
[2022-04-22 01:44] LABS: Albumin, Blood 3.2 g/dL (3.4-5.0); Albumin/Globulin Ratio 0.8 (0.8-1.8); Bilirubin, Total 0.7 mg/dL (0.1-1.0); Bun/Creatinine Ratio 14.6 (12.0-20.0); Calcium, Blood 9.8 mg/dL (8.5-10.1); Creatinine, Blood 1.64 mg/dL (0.40-1.00); Globulin, Blood 4.1 g/dL (2.2-4.0); Potassium, Blood 3.6 mmol/L (3.5-5.5); Total Protein, Blood 7.3 g/dL (6.4-8.2)
[2022-04-22 02:44] LABS: Influenza A, PCR NEGATIVE (NEGATIVE); Influenza B, PCR NEGATIVE (NEGATIVE); Resp Syncytial Virus, PCR NEGATIVE (NEGATIVE); SARS-Cov-2 (COVID-19) PCR, MMC NEGATIVE (NEGATIVE)
[2022-04-22 06:48] LABS: Anti-Xa UFH, PHA Monitoring <0.10 IU/mL; International Normalized Ratio 1.04; Prothrombin Time Results 10.9 Sec (9.7-11.5)
[2022-04-22 06:58] LABS: CHOL/HDL RATIO 2.6; Cholesterol 138 mg/dL (50-200); Ferritin, Serum 13 ng/mL (8-252); HDL Cholesterol 54 mg/dL (>39); Iron Serum 14 ug/dL (50-170); LDL/HDL RATIO 1.3; Low Density Lipoprotein Chol 71 mg/dL (0-110); Percent Saturation 3.3 % (15.0-50.0); Total Iron Binding Capacity 424 ug/dL (250-450); Triglycerides 67 mg/dL (30-160); Very Low Density Lipoprot Chol 13 mg/dL (6-32)
--- NOTE | 2022-04-22 17:21 | NUR ---
SHIFT SUMMARY PT REMAINS ALERT AND ORIENTED. VS STABLE. O2 SATS REMAIN ABOVE 90% ON RA. HR NSR. PT HAS DENIED CP SINCE ADMISSION. HEP GTT INFUSING PER ORDERS. PT ABLE TO REPOSITION HERSELF IN BED INDEPENDENTLY. WILL CONTINUE TO MONITOR AND REPORT TO ONCOMING RN
[2022-04-23 02:54] LABS: Hematocrit 24.6 % (33.0-51.0); Hemoglobin 6.5 g/dL (11.5-16.0); Mean Corpuscular HGB 18.2 pg (26.0-34.0); Mean Corpuscular HGB Conc 26.4 g/dL (31.5-36.5); Mean Corpuscular Volume 69 fL (80-100); Platelet Count 225 K/mm3 (150-400); RDW Coefficient Variation 20.4 % (11.7-14.2); RDW Standard Deviation 50.3 fL (35.1-46.3); Red Blood Cell Count 3.57 M/mm3 (3.80-5.20)
[2022-04-23 03:13] LABS: Albumin, Blood 2.4 g/dL (3.4-5.0); Albumin/Globulin Ratio 0.7 (0.8-1.8); Bilirubin, Total 0.4 mg/dL (0.1-1.0); Bun/Creatinine Ratio 16.6 (12.0-20.0); Calcium, Blood 8.8 mg/dL (8.5-10.1); Creatinine, Blood 1.57 mg/dL (0.40-1.00); Globulin, Blood 3.3 g/dL (2.2-4.0); Potassium, Blood 4.5 mmol/L (3.5-5.5); Total Protein, Blood 5.7 g/dL (6.4-8.2)
--- NOTE | 2022-04-23 03:34 | NUR ---
UPDATE PHYSICIAN NOTIFIED OF PT'S HBG UNDER 7, AND LOW BP. MAP IS ABOVE 65 AT THIS TIME. ORDERS TO TRANSFUSE 1 UNIT AT THIS TIME, ORDERS TO D/C HEPARIN GTT. ORDERS FOR H&H TO BE DRAWN 30 MIN AFTER TRANSFUSION IS COMPLETE. PT HAS NO SIGNS OF ACTIVE BLEEDING AT THIS TIME. WILL CONT TO MONITOR.
--- NOTE | 2022-04-23 06:21 | NUR ---
SHIFT SUMMARY PT ALERT AND ORIENTED X 4. HR STABLE. BP HYPOTENSIVE AT TIMES, MAP REMAINED ABOVE 65. PHYSICIAN AWARE. OXYGEN SATURATION MAINTAINED ABOVE 92% ON RA. PHYSICIAN NOTIFIED OF PT'S LOW HGB. SEE ORDERS. PER PHYSICIAN PLAN TO RUN BLOOD WITHIN 2.5 HRS. PT TOLERATING WELL. BP INCREASING DURING BLOOD TRANSFUSION. PT SBA TO COMMODE. PT HAD BOWEL MOVEMENT, STOOL SAMPLE SENT D/T PT'S LOW HGB. PT ABLE TO TURN SELF IN BED NEEDED. CALL LIGHT WITHIN REACH. WILL CONT TO MONITOR UNTIL REPORT GIVEN TO DAYSHIFT RN.
--- NOTE | 2022-04-23 08:07 | NUR ---
NURSING PCU DAYSHIFT: Assumed care of pt at approx 0700. A/O, pleasant, cooperative w/care this a.m. C/O 3/10 low back pain r/t "uncomfortable bed", improves w/repositioning. Skin is intact, no breakdown noted. Ambulates/repositions independently and w/o difficulty. Tele in place, NSR, no c/o CP/pressure, SBP 113, no noted edema. L/S cta t/o, O2 sat 100% on RA, denies dyspnea, no noted cough. Abd SNT, BT+, voiding w/o difficulty per pt. PIV x1, s/l, PG to SAM w/NS TKO. No s/s of acute distress this a.m. PRBC's completed as ordered, f/u lab drawn, awaiting results. Pt currently sitting up in bed having breakfast, denies any current needs or questions regarding plan of care. Awaiting rounding from PMD and feeder catcher, call light in reach, cont to monitor for any changes.
[2022-04-23 08:24] LABS: Hematocrit 28.3 % (33.0-51.0); Hemoglobin 7.8 g/dL (11.5-16.0)
[2022-04-23 09:55] LABS: Stool Occult Blood Guaiac 1 Pos (Neg)
[2022-04-23] MEDS ORDERED: LIPITOR80 MG PO (10:59)
[2022-04-23] MEDS ORDERED: METO50ER PO (10:59)
[2022-04-23] MEDS ORDERED: PANT40 PO (10:59)
--- NOTE | 2022-04-23 11:21 | NUR ---
NURSING PCU DISCHARGE SUMMARY: No significant changes t/o the a.m. Seen by PMD, discharge home d/o received. Pt verbalized understanding of all written and verbal discharge instructions. PIV/PG dc'd w/caths intact. Rx's called to [facility] per pt request. Pt ambulated independently and w/o difficulty at approx 1120 from unit w/discharge folder. No s/s of distress at that time.
== END 2022-04-23 11:19 | disposition home or self-care (01) | DRG 281 ==
LOC: ER 00:48 → ERHOLD 05:10 → PCU 05:10
PROVIDERS: Emergency Medicine; Internal Medicine; ADMIT Family Medicine
PROC: 30233N1 Transfusion of Nonautologous Red Blood Cells into Peripheral Vein, Percutaneous Approach (ICD-10-PCS; principal; 2022-04-23)
DX: I21.4 Non-ST elevation (NSTEMI) myocardial infarction (principal); N17.9 Acute kidney failure, unspecified; I42.0 Dilated cardiomyopathy; Z20.822 Contact with and (suspected) exposure to COVID-19; I12.9 Hypertensive chronic kidney disease with stage 1 through stage 4 chronic kidney disease, or unspecified chronic kidney disease; G43.909 Migraine, unspecified, not intractable, without status migrainosus; D63.1 Anemia in chronic kidney disease; N18.30 Chronic kidney disease, stage 3 unspecified; F15.10 Other stimulant abuse, uncomplicated; D50.9 Iron deficiency anemia, unspecified; Z98.51 Tubal ligation status; Z98.890 Other specified postprocedural states; Z88.1 Allergy status to other antibiotic agents; Z88.8 Allergy status to other drugs, medicaments and biological substances; Z91.018 Allergy to other foods; Z91.040 Latex allergy status; Z79.82 Long term (current) use of aspirin; Z79.899 Other long term (current) drug therapy
CPT/HCPCS: 0241U; 36415; 71045; 80053; 80061; 82272; 82607; 82728; 82746; 83540; 83550; 83880; 84484; 85014; 85018; 85025; 85027; 85520; 85610; 85730; 86850; 86900; 86901; 86923; 93005; 93010; 96372; 96374; 99285-25; A9270; C1751; J1630; J1644; J7030; P9016

== ENCOUNTER → 2022-05-29 | Outpatient (CLI) | payer OTHER ==
[~2022-05-29] MED LIST changes: +LIPITOR80 MG PO; +METO50ER PO; +PANT40 PO
== END | disposition home or self-care (01) ==
LOC: LAB SHORT 13:00 → LAB 13:00
DX: R30.0 Dysuria (principal); R35.0 Frequency of micturition
CPT/HCPCS: 87077; 87086; 87186

== ENCOUNTER 2022-09-09 00:23 | Inpatient (IN) | payer OTHER ==
[~2022-09-09] VITALS: Ht 165.1 cm; Wt 94.2 kg
[2022-09-09 01:02] LABS: BASOPHILS ABSOLUTE AUTO 0.05 K/mm3 (0.00-0.23); BASOPHILS PERCENT AUTO 1 % (0-2); EOSINOPHILS ABSOLUTE AUTO 0.25 K/mm3 (0.00-0.68); EOSINOPHILS PERCENT AUTO 4 % (0-6); Hematocrit 36.8 % (33.0-51.0); Hemoglobin 10.7 g/dL (11.5-16.0); IMMATURE GRAN ABSOLUTE AUTO 0.01 K/mm3 (0.00-0.10); IMMATURE GRAN PERCENT AUTO 0 % (0-1); LYMPHOCYTES ABSOLUTE AUTO 2.26 K/mm3 (0.84-5.20); LYMPHOCYTES PERCENT AUTO 34 % (21-46); MONOCYTES ABSOLUTE AUTO 0.54 K/mm3 (0.16-1.47); MONOCYTES PERCENT AUTO 8 % (4-13); Mean Corpuscular HGB 20.5 pg (26.0-34.0); Mean Corpuscular HGB Conc 29.1 g/dL (31.5-36.5); Mean Corpuscular Volume 70 fL (80-100); NEUTROPHILS PERCENT AUTO 53 % (41-73); Platelet Count 213 K/mm3 (150-400); RDW Coefficient Variation 20.9 % (11.7-14.2); RDW Standard Deviation 52.2 fL (35.1-46.3); Red Blood Cell Count 5.23 M/mm3 (3.80-5.20); White Blood Cell Count 6.61 K/mm3 (4.00-11.30)
[2022-09-09 01:11] LABS: Albumin, Blood 3.3 g/dL (3.4-5.0); Albumin/Globulin Ratio 0.8 (0.8-1.8); Bilirubin, Total 0.3 mg/dL (0.1-1.0); Bun/Creatinine Ratio 25.4 (12.0-20.0); Calcium, Blood 9.9 mg/dL (8.5-10.1); Creatinine, Blood 1.22 mg/dL (0.40-1.00); Globulin, Blood 4.1 g/dL (2.2-4.0); Potassium, Blood 3.7 mmol/L (3.5-5.5); Total Protein, Blood 7.4 g/dL (6.4-8.2)
[2022-09-09 05:07] LABS: Anti-Xa UFH, PHA Monitoring <0.10 IU/mL; International Normalized Ratio 0.98; Prothrombin Time Results 10.3 Sec (9.7-11.5)
--- NOTE | 2022-09-09 06:11 | NUR ---
SHIFT SUMMARY ASSUMED CARE OF PT AT FROM ER. PT IS A/OX4 BUT LETHARGIC. PT FALLS ASLEEP ONCE SHE LAYS DOWN. HEART SOUNDS REGULAR. LUNG SOUNDS CLEAR. PT 1P SBA FOR CORD CONTROL. URINE CLEAR AND YELLOW. PT UNABLE TO PARTICIPATE IS ADMISSION QUESTIONS DUE TO SLEEPING. HEPRIN INFUSING.
[2022-09-09 06:41] LABS: U Amphetamine Screen DETECTED; U Barbituate Screen Not Detected; U Benzodiazapine Screen Not Detected; U Buprenorphine Screen Not Detected; U Cannabinoids Screen Not Detected; U Cocaine Screen Not Detected; U Methadone Screen Not Detected; U Methamphetamine Screen DETECTED; U Opiates Screen Not Detected; U Oxycodone Screen Not Detected; U Phencyclidine Screen Not Detected; U Propoxyphene Screen Not Detected
--- NOTE | 2022-09-09 12:28 | NUR ---
PT TO [facility] SPECIALIST AT THIS TIME.
--- NOTE | 2022-09-09 17:21 | NUR ---
SHIFT SUMMARY PT S/P ANGIO WITH 1 STENT IN PROX LAD. R RADIAL SITE WITH TR BAND INFLATED TO 10 CC. NO BLEEDING NOTED. PT VERY FATIGUED AND HAS BEEN RESTING THE MAJORITY OF THE SHIFT. VSS.
--- NOTE | 2022-09-09 20:20 | NUR ---
Patient was still on heparin gtt post angio with no orders/notes to continue it. Contacted Dr. Krause who DC'd the order.
[2022-09-09 21:28] LABS: SARS-Cov-2 (COVID-19) PCR, MMC NEGATIVE (NEGATIVE)
--- NOTE | 2022-09-09 23:20 | NUR ---
Reviewing patients tele strips and appeared markedly different than before. Obtained EKG and charges Klarissa and Zo reviewed and determined to be normal changes for post-angio. Patient asymptomatic at this time.
[2022-09-10 04:59] LABS: Albumin, Blood 3.5 g/dL (3.4-5.0); Albumin/Globulin Ratio 0.8 (0.8-1.8); Bilirubin, Total 0.6 mg/dL (0.1-1.0); Bun/Creatinine Ratio 22.4 (12.0-20.0); Calcium, Blood 9.8 mg/dL (8.5-10.1); Creatinine, Blood 1.61 mg/dL (0.40-1.00); Globulin, Blood 4.5 g/dL (2.2-4.0); Potassium, Blood 3.5 mmol/L (3.5-5.5)
[2022-09-10 05:01] LABS: BASOPHILS ABSOLUTE AUTO 0.04 K/mm3 (0.00-0.23); BASOPHILS PERCENT AUTO 1 % (0-2); EOSINOPHILS ABSOLUTE AUTO 0.18 K/mm3 (0.00-0.68); EOSINOPHILS PERCENT AUTO 3 % (0-6); Hematocrit 39.4 % (33.0-51.0); Hemoglobin 11.8 g/dL (11.5-16.0); IMMATURE GRAN ABSOLUTE AUTO 0.01 K/mm3 (0.00-0.10); IMMATURE GRAN PERCENT AUTO 0 % (0-1); LYMPHOCYTES ABSOLUTE AUTO 0.79 K/mm3 (0.84-5.20); LYMPHOCYTES PERCENT AUTO 12 % (21-46); MONOCYTES PERCENT AUTO 11 % (4-13); Mean Corpuscular HGB 20.2 pg (26.0-34.0); Mean Corpuscular HGB Conc 29.9 g/dL (31.5-36.5); Mean Corpuscular Volume 68 fL (80-100); NEUTROPHILS ABSOLUTE AUTO 4.84 K/mm3 (1.96-9.15); NEUTROPHILS PERCENT AUTO 74 % (41-73); Platelet Count 210 K/mm3 (150-400); RDW Coefficient Variation 21.1 % (11.7-14.2); RDW Standard Deviation 48.9 fL (35.1-46.3); Red Blood Cell Count 5.83 M/mm3 (3.80-5.20); White Blood Cell Count 6.56 K/mm3 (4.00-11.30)
--- NOTE | 2022-09-10 06:14 | NUR ---
Assumed care of pt at 1900, A/Ox4, cooperative with care. Maintains over 95% on RA, LS clear on top and dim at bases, shallow breathing pattern. SR-ST on tele, denies any CP/pressure, BP stable, SBP in 90's but MAP over 65.. EKG obtained twice during the night d/t tele strip changes, please see previous note. R radial site C/D/I. Patient had slight hallucination briefly during the night and thought blood was running down her arm, arm was checked and no there's no bleeding. Will report to kristen CALLAHAN.
[2022-09-10 10:24] LABS: Creatine Kinase MB 22.2 ng/mL (0.0-3.6); Creatine Kinase MB Index 4.4 (0.0-4.0)
--- NOTE | 2022-09-10 18:21 | NUR ---
SHIFT SUMMARY PT APPEARS TO BE SLEEPING FOR MAJORITY OF SHIFT, WAKES EASILY TO VERBAL STIMULI, ORIENTED X4, CALM AND COOPERATIVE WITH CARE. PT RESTING IN BED, UP SBA IN ROOM. PT DENIES PAIN, CHEST PAIN/PRESSURE, SOB, NAUSEA, DIZZINESS AND NUBM/TINGLING. RIGHT RADIAL SITE, C/D/I, NO BRUISING, BLEEDING OR HEMATOMA NOTED. EKG CHANGES NOTED, DR VARELA NOTIFED. PT RECEIVED MAG AND POTASSIUM THIS AM. PLANS FOR EKG IN AM. OTHER VSS. NO OTHER ACUTE CHANGES NOTED. WILL CONTINUE TO MONITOR UNTIL REPORT GIVEN TO ONCOMING RN.
--- NOTE | 2022-09-11 05:17 | NUR ---
Patient A/Ox4, cooperative with care. Slept for most of the night, only wakening for snacks and to use restroom. Patient's skin is sweaty, denies any CP/pressure. VSS. Will update dayshift RN.
[2022-09-11 05:41] LABS: Bun/Creatinine Ratio 33.3 (12.0-20.0); Calcium, Blood 9.8 mg/dL (8.5-10.1); Creatinine, Blood 1.59 mg/dL (0.40-1.00); Magnesium, Blood 2.6 mg/dL (1.6-2.4); Potassium, Blood 4.2 mmol/L (3.5-5.5)
[2022-09-11] MEDS ORDERED: TORSE20 PO (15:52)
[2022-09-11] MEDS ORDERED: METO25ER PO (15:53)
--- NOTE | 2022-09-11 17:19 | NUR ---
DISCHARGE SUMMARY PT ALERT, ORIENTED x4; CALM AND COOPERATIVE WITH CARE. PT RESTING IN BED FOR MAJORITY OF SHIFT, UP TO BATHROOM WITH SBA. PT DENIES PAIN, CHEST PAIN/PRESSURE, SOB, NAUSEA, DIZZINESS AND NUMB/TINGLING. TELE SINUS, BP SOFT THIS AM, TRENDING UP THIS AFTERNOON. SPO2 >90% ON RA, BREATHING EVEN AND UNLABORED. RIGHT RADIAL SITE, C/D/I, NO BRUISING, BLEEDING OR HEMATOMA NOTED. OTHER VSS. NO OTHER ACUTE CHANGE NOTED. PT EDUCATED ON DISCHARGE INSTRUCTIONS, FOLLOW UP APPOINTMENT AND MEDICATIONS. PRESCRIPTIONS FAXED TO [facility] PER PT REQUEST. PT LEFT ROOM AT 1622 VIA WHEEL CHAIR. PLANS TO STAY WITH FAMILY. PT EDUCATED ON IMPORTANCE OF MEDICATION COMPLIANCE.
== END 2022-09-11 16:27 | disposition home or self-care (01) | DRG 246 ==
LOC: ER 00:23 → PCU 05:09
PROVIDERS: Internal Medicine Cardiovascular Disease; Student in an Organized Health Care Education/Training Program; ADMIT Internal Medicine
PROC: 4A023N7 Measurement of Cardiac Sampling and Pressure, Left Heart, Percutaneous Approach (ICD-10-PCS; principal; 2022-09-09)
PROC: 027034Z Dilation of Coronary Artery, One Artery with Drug-eluting Intraluminal Device, Percutaneous Approach (ICD-10-PCS; 2022-09-09)
PROC: B2111ZZ Fluoroscopy of Multiple Coronary Arteries using Low Osmolar Contrast (ICD-10-PCS; 2022-09-09)
PROC: B240ZZ3 Ultrasonography of Single Coronary Artery, Intravascular (ICD-10-PCS; 2022-09-09)
DX: I21.4 Non-ST elevation (NSTEMI) myocardial infarction (principal); I50.23 Acute on chronic systolic (congestive) heart failure; J96.01 Acute respiratory failure with hypoxia; I13.0 Hypertensive heart and chronic kidney disease with heart failure and stage 1 through stage 4 chronic kidney disease, or unspecified chronic kidney disease; I42.7 Cardiomyopathy due to drug and external agent; Z20.822 Contact with and (suspected) exposure to COVID-19; F15.10 Other stimulant abuse, uncomplicated; N18.30 Chronic kidney disease, stage 3 unspecified; I95.9 Hypotension, unspecified; D50.9 Iron deficiency anemia, unspecified; I25.2 Old myocardial infarction; Z98.51 Tubal ligation status; Z88.8 Allergy status to other drugs, medicaments and biological substances; Z91.040 Latex allergy status; Z91.018 Allergy to other foods; Z79.51 Long term (current) use of inhaled steroids; Z79.82 Long term (current) use of aspirin; Z79.02 Long term (current) use of antithrombotics/antiplatelets; Z79.899 Other long term (current) drug therapy
CPT/HCPCS: 36415; 71045; 71260; 76937; 80048; 80053; 82550; 82553; 83690; 83735; 83880; 84484; 85025; 85347; 85379; 85520; 85610; 85730; 86850; 86900; 86901; 92978; 93005; 93010; 93306; 93458; 93571; 94760; 94762; 99152; 99153; A9270; C1725; C1753; C1769; C1874; C1887; C1894; C9600; J0360; J1200; J1630; J1644; J1940; J2250; J2405; J3010; J3475; J7030; J7040; Q9967; U0004

== ENCOUNTER 2022-11-11 10:55 | Inpatient (IN) | payer OTHER ==
[~2022-11-11] VITALS: Ht 160 cm; Wt 99.1 kg
[~2022-11-11 10:55] MED LIST changes: +METO25ER PO; +TORSE20 PO
[2022-11-11 11:40] LABS: BASOPHILS ABSOLUTE AUTO 0.05 K/mm3 (0.00-0.23); BASOPHILS PERCENT AUTO 1 % (0-2); EOSINOPHILS ABSOLUTE AUTO 0.05 K/mm3 (0.00-0.68); EOSINOPHILS PERCENT AUTO 1 % (0-6); Hemoglobin 7.9 g/dL (11.5-16.0); IMMATURE GRAN ABSOLUTE AUTO 0.03 K/mm3 (0.00-0.10); IMMATURE GRAN PERCENT AUTO 0 % (0-1); LYMPHOCYTES ABSOLUTE AUTO 1.56 K/mm3 (0.84-5.20); LYMPHOCYTES PERCENT AUTO 15 % (21-46); MONOCYTES ABSOLUTE AUTO 0.73 K/mm3 (0.16-1.47); MONOCYTES PERCENT AUTO 7 % (4-13); Mean Corpuscular HGB 22.8 pg (26.0-34.0); Mean Corpuscular HGB Conc 29.3 g/dL (31.5-36.5); Mean Corpuscular Volume 78 fL (80-100); NEUTROPHILS ABSOLUTE AUTO 8.28 K/mm3 (1.96-9.15); NEUTROPHILS PERCENT AUTO 77 % (41-73); Platelet Count 218 K/mm3 (150-400); RDW Coefficient Variation 20.8 % (11.7-14.2); RDW Standard Deviation 58.4 fL (35.1-46.3); Red Blood Cell Count 3.47 M/mm3 (3.80-5.20)
[2022-11-11 11:43] LABS: Mean Platelet Volume 11.4 fL (9.1-12.4)
[2022-11-11 11:57] LABS: Albumin, Blood 2.6 g/dL (3.4-5.0); Albumin/Globulin Ratio 0.9 (0.8-1.8); Bilirubin, Total 0.4 mg/dL (0.1-1.0); Calcium, Blood 8.9 mg/dL (8.5-10.1); Creatinine, Blood 1.17 mg/dL (0.40-1.00); Potassium, Blood 4.6 mmol/L (3.5-5.5); Total Protein, Blood 5.6 g/dL (6.4-8.2)
[2022-11-11 12:40] LABS: Influenza A, PCR NEGATIVE (NEGATIVE); Influenza B, PCR NEGATIVE (NEGATIVE); Resp Syncytial Virus, PCR NEGATIVE (NEGATIVE); SARS-Cov-2 (COVID-19) PCR, MMC NEGATIVE (NEGATIVE)
[2022-11-11 16:23] LABS: Hematocrit 26.7 % (33.0-51.0); Hemoglobin 7.9 g/dL (11.5-16.0)
[2022-11-11 16:39] LABS: International Normalized Ratio 1.01; Prothrombin Time Results 10.6 Sec (9.7-11.5)
--- NOTE | 2022-11-12 06:06 | NUR ---
A/OX4; CALM AND COOPERATIVE. DENIES PAIN. DENIES NAUSEA. SBA /1X ASSIST TO BSC. LOOSE BLACK STOOL 1X THIS SHIFT. IVF INFUSING PER ORDERS. IV PROTONIX GIVEN. BED ALARM SET. SLEEP PROMOTED. CALL LIGHT IN REACH; ENCOURAGED TO MAKE NEEDS KNOWN.
[2022-11-12 07:00] LABS: BASOPHILS ABSOLUTE AUTO 0.03 K/mm3 (0.00-0.23); BASOPHILS PERCENT AUTO 1 % (0-2); EOSINOPHILS ABSOLUTE AUTO 0.11 K/mm3 (0.00-0.68); EOSINOPHILS PERCENT AUTO 2 % (0-6); Hematocrit 23.5 % (33.0-51.0); Hemoglobin 6.8 g/dL (11.5-16.0); IMMATURE GRAN ABSOLUTE AUTO 0.02 K/mm3 (0.00-0.10); IMMATURE GRAN PERCENT AUTO 0 % (0-1); LYMPHOCYTES ABSOLUTE AUTO 1.47 K/mm3 (0.84-5.20); LYMPHOCYTES PERCENT AUTO 25 % (21-46); MONOCYTES ABSOLUTE AUTO 0.33 K/mm3 (0.16-1.47); MONOCYTES PERCENT AUTO 6 % (4-13); Mean Corpuscular HGB 22.2 pg (26.0-34.0); Mean Corpuscular HGB Conc 28.9 g/dL (31.5-36.5); Mean Corpuscular Volume 77 fL (80-100); Mean Platelet Volume 11.7 fL (9.1-12.4); NEUTROPHILS ABSOLUTE AUTO 3.93 K/mm3 (1.96-9.15); NEUTROPHILS PERCENT AUTO 67 % (41-73); Platelet Count 181 K/mm3 (150-400); RDW Coefficient Variation 20.9 % (11.7-14.2); RDW Standard Deviation 57.9 fL (35.1-46.3); Red Blood Cell Count 3.06 M/mm3 (3.80-5.20); White Blood Cell Count 5.89 K/mm3 (4.00-11.30)
[2022-11-12 07:16] LABS: Bun/Creatinine Ratio 36.5 (12.0-20.0); Calcium, Blood 8.8 mg/dL (8.5-10.1); Creatinine, Blood 1.26 mg/dL (0.40-1.00); Magnesium, Blood 1.7 mg/dL (1.6-2.4); Potassium, Blood 4.4 mmol/L (3.5-5.5)
[2022-11-12 16:13] LABS: Hematocrit 26.5 % (33.0-51.0); Hemoglobin 8.2 g/dL (11.5-16.0)
--- NOTE | 2022-11-12 16:38 | NUR ---
SHIFT SUMMARY A&OX4, TIRED T/O SHIFT. CALLS APPROPRIATELY AND ABLE TO VERBALIZE NEEDS. RECEIVED TYLENOL THIS AM FOR BACK PAIN. SOFT BP'S ALL DAY. HEMOGLOBIN 6.8 THIS MORNING. PT RECEIVED 1 UNIT OF BLOOD. LEVEL INCREASED TO 8.2. CURRENTLY REVEIVING LR WITH PROTONIX PIGGYBACK. NO ACUTE CHANGES THIS SHIFT. PATIENT CURRENTLY RESTING, CALL LIGHT WITHIN REACH, NO CONCERNS AT THIS TIME.
--- NOTE | 2022-11-13 03:06 | NUR ---
A/OX4; CALM AND COOPERATIVE. IRRITABLE AND FLAT AFFECT. DENIES PAIN. DENIES NAUSEA. SBA /1X ASSIST TO BSC. NO LOOSE BLACK STOOL YET THIS SHIFT. IVF INFUSING PER ORDERS. IV PROTONIX CONTINUOUS. BED ALARM SET. SLEEP PROMOTED. CALL LIGHT IN REACH; ENCOURAGED TO MAKE NEEDS KNOWN.
[2022-11-13 05:46] LABS: BASOPHILS ABSOLUTE AUTO 0.04 K/mm3 (0.00-0.23); BASOPHILS PERCENT AUTO 1 % (0-2); EOSINOPHILS ABSOLUTE AUTO 0.18 K/mm3 (0.00-0.68); EOSINOPHILS PERCENT AUTO 3 % (0-6); Hematocrit 25.3 % (33.0-51.0); Hemoglobin 7.9 g/dL (11.5-16.0); IMMATURE GRAN ABSOLUTE AUTO 0.02 K/mm3 (0.00-0.10); IMMATURE GRAN PERCENT AUTO 0 % (0-1); LYMPHOCYTES ABSOLUTE AUTO 1.24 K/mm3 (0.84-5.20); LYMPHOCYTES PERCENT AUTO 21 % (21-46); MONOCYTES ABSOLUTE AUTO 0.41 K/mm3 (0.16-1.47); MONOCYTES PERCENT AUTO 7 % (4-13); Mean Corpuscular HGB 23.9 pg (26.0-34.0); Mean Corpuscular HGB Conc 31.2 g/dL (31.5-36.5); Mean Corpuscular Volume 76 fL (80-100); NEUTROPHILS ABSOLUTE AUTO 4.05 K/mm3 (1.96-9.15); NEUTROPHILS PERCENT AUTO 68 % (41-73); Platelet Count 181 K/mm3 (150-400); RDW Standard Deviation 54.5 fL (35.1-46.3); Red Blood Cell Count 3.31 M/mm3 (3.80-5.20); White Blood Cell Count 5.94 K/mm3 (4.00-11.30)
[2022-11-13 06:05] LABS: Bun/Creatinine Ratio 25.5 (12.0-20.0); Calcium, Blood 8.7 mg/dL (8.5-10.1); Creatinine, Blood 1.45 mg/dL (0.40-1.00); Potassium, Blood 3.9 mmol/L (3.5-5.5)
[2022-11-13 12:11] LABS: Hematocrit 25.2 % (33.0-51.0); Hemoglobin 7.9 g/dL (11.5-16.0)
[2022-11-13 17:43] LABS: Hemoglobin 8.2 g/dL (11.5-16.0)
--- NOTE | 2022-11-13 17:51 | NUR ---
PLEASANT PATIENT WHO HAS BEEN RUNNING ON PROTONIX THIS SHIFT. ONCE THIS BAG OF PROTONIX IS DONE, SHE WILL BE SALINE LOCKED. FLUIDS (LR) IS DC. SHE WILL START VIALS OF PROTONIX PUSH IV IN THE MORNING. PATIENT DENIES PAIN. THERE HAS BEEN NO TARRY STOOL THIS SHIFT. LS CLEAR, SLIGHT EDEMA IN LE. MIDODRINE WAS STARTED FOR HYPOTENSION. PATIENT TOLERATES WELL.
[2022-11-14 05:10] LABS: BASOPHILS ABSOLUTE AUTO 0.05 K/mm3 (0.00-0.23); BASOPHILS PERCENT AUTO 1 % (0-2); EOSINOPHILS ABSOLUTE AUTO 0.17 K/mm3 (0.00-0.68); EOSINOPHILS PERCENT AUTO 3 % (0-6); Hematocrit 24.1 % (33.0-51.0); Hemoglobin 7.5 g/dL (11.5-16.0); IMMATURE GRAN ABSOLUTE AUTO 0.03 K/mm3 (0.00-0.10); IMMATURE GRAN PERCENT AUTO 1 % (0-1); LYMPHOCYTES ABSOLUTE AUTO 1.19 K/mm3 (0.84-5.20); LYMPHOCYTES PERCENT AUTO 20 % (21-46); MONOCYTES ABSOLUTE AUTO 0.44 K/mm3 (0.16-1.47); MONOCYTES PERCENT AUTO 7 % (4-13); Mean Corpuscular HGB Conc 31.1 g/dL (31.5-36.5); Mean Corpuscular Volume 77 fL (80-100); NEUTROPHILS ABSOLUTE AUTO 4.13 K/mm3 (1.96-9.15); NEUTROPHILS PERCENT AUTO 69 % (41-73); Platelet Count 170 K/mm3 (150-400); RDW Coefficient Variation 20.3 % (11.7-14.2); RDW Standard Deviation 55.2 fL (35.1-46.3); Red Blood Cell Count 3.12 M/mm3 (3.80-5.20); White Blood Cell Count 6.01 K/mm3 (4.00-11.30)
[2022-11-14 05:27] LABS: Mean Platelet Volume 11.3 fL (9.1-12.4)
[2022-11-14 05:28] LABS: Albumin, Blood 2.5 g/dL (3.4-5.0); Anion Gap 6 mmol/L (6-16); Blood Urea Nitrogen 27 mg/dL (8-24); Bun/Creatinine Ratio 21.8 (12.0-20.0); CO2, Blood 23 mmol/L (21-32); Calcium, Blood 8.8 mg/dL (8.5-10.1); Chloride, Blood 113 mmol/L (98-108); Creatinine, Blood 1.24 mg/dL (0.40-1.00); Glomerular Filtration Rate 53 (60-); Glucose, Blood 111 mg/dL (70-99); Phosphorus, Blood 3.6 mg/dL (2.5-4.9); Potassium, Blood 4.1 mmol/L (3.5-5.5); Sodium, Blood 142 mmol/L (136-145)
--- NOTE | 2022-11-14 05:53 | NUR ---
FOAM FABRICATOR SUMMARY: A&Ox4. PLEASANT AND COOPERATIVE WITH CARE. CALLS APPROPRIATELY AND IS ABLE TO COMMUNICATE NEEDS EFFECTIVELY. SLEPT MAJORITY OF SHIFT AND NO ACUTE EVENTS THROUGHOUT THE NIGHT. SBP <100 THIS AM WHEN PT SLEEPING; MAP OF 64. NO C/O LIGHT-HEADEDNESS, DIZZINESS OR WEAKNESS. LABS DRAWN THIS AM; HGB OF 7.5. WILL REPORT TO ONCOMING RN.
[2022-11-14 08:51] LABS: Percent Saturation 6.4 % (15.0-50.0)
[2022-11-14 11:09] LABS: Hematocrit 24.7 % (33.0-51.0); Hemoglobin 7.6 g/dL (11.5-16.0)
--- NOTE | 2022-11-14 16:47 | NUR ---
DISCHARGE SUMMARY: PT DISCHARGED HOME WITH MOTHER. PT GIVEN SCRIPT FOR BLOOD PRESSURE MONITOR AND CUFF. PT EDUCATED ON DISCHARGE INSTRUCTIONS AND MEDICATIONS. PT VU. PT AMBULATED TO CAR WITH WALKER AND TX SELF TO CAR.
== END 2022-11-14 16:32 | disposition home or self-care (01) | DRG 378 ==
LOC: ER 10:55 → ERHOLD 10:56 → MEDS 18:14
PROVIDERS: Emergency Medicine; Family Medicine; Internal Medicine; Physician Assistant; ADMIT Student in an Organized Health Care Education/Training Program
PROC: 30233N1 Transfusion of Nonautologous Red Blood Cells into Peripheral Vein, Percutaneous Approach (ICD-10-PCS; principal; 2022-11-11)
DX: K92.2 Gastrointestinal hemorrhage, unspecified (principal); D62 Acute posthemorrhagic anemia; I13.0 Hypertensive heart and chronic kidney disease with heart failure and stage 1 through stage 4 chronic kidney disease, or unspecified chronic kidney disease; I50.22 Chronic systolic (congestive) heart failure; I25.10 Atherosclerotic heart disease of native coronary artery without angina pectoris; I95.9 Hypotension, unspecified; F15.10 Other stimulant abuse, uncomplicated; N18.30 Chronic kidney disease, stage 3 unspecified; D50.9 Iron deficiency anemia, unspecified; N92.0 Excessive and frequent menstruation with regular cycle; G43.909 Migraine, unspecified, not intractable, without status migrainosus; Z20.822 Contact with and (suspected) exposure to COVID-19; W19.XXXA Unspecified fall, initial encounter; Z59.00 Homelessness unspecified; Z95.5 Presence of coronary angioplasty implant and graft; Z91.040 Latex allergy status; Z88.1 Allergy status to other antibiotic agents; Z88.8 Allergy status to other drugs, medicaments and biological substances; Z91.018 Allergy to other foods; Z79.51 Long term (current) use of inhaled steroids; Z79.82 Long term (current) use of aspirin; Z79.899 Other long term (current) drug therapy; Z79.02 Long term (current) use of antithrombotics/antiplatelets; Z98.51 Tubal ligation status; Z98.890 Other specified postprocedural states
CPT/HCPCS: 0241U; 36415; 36430; 80048; 80053; 80069; 82272; 82607; 82728; 82746; 83540; 83550; 83735; 83880; 85014; 85018; 85025; 85610; 86850; 86900; 86901; 86922; 93005; 93010; 96374; 96376; 99285-25; A9270; C9113; G0378; J7050; J7120; P9016

== ENCOUNTER 2023-07-12 21:15 | Emergency (ER) | payer OTHER ==
[~2023-07-12] VITALS: Ht 157.5 cm; Wt 90.7 kg
[2023-07-13 00:20] LABS: BASOPHILS ABSOLUTE AUTO 0.04 K/mm3 (0.00-0.23); BASOPHILS PERCENT AUTO 1 % (0-2); EOSINOPHILS ABSOLUTE AUTO 0.17 K/mm3 (0.00-0.68); EOSINOPHILS PERCENT AUTO 3 % (0-6); Hematocrit 43.5 % (33.0-51.0); Hemoglobin 13.9 g/dL (11.5-16.0); IMMATURE GRAN ABSOLUTE AUTO 0.01 K/mm3 (0.00-0.10); IMMATURE GRAN PERCENT AUTO 0 % (0-1); LYMPHOCYTES ABSOLUTE AUTO 1.35 K/mm3 (0.84-5.20); LYMPHOCYTES PERCENT AUTO 25 % (21-46); MONOCYTES ABSOLUTE AUTO 0.47 K/mm3 (0.16-1.47); MONOCYTES PERCENT AUTO 9 % (4-13); Mean Corpuscular HGB 27.3 pg (26.0-34.0); Mean Corpuscular Volume 86 fL (80-100); Mean Platelet Volume 11.3 fL (9.1-12.4); NEUTROPHILS ABSOLUTE AUTO 3.33 K/mm3 (1.96-9.15); NEUTROPHILS PERCENT AUTO 62 % (41-73); Platelet Count 158 K/mm3 (150-400); RDW Coefficient Variation 14.6 % (11.7-14.2); RDW Standard Deviation 45.1 fL (35.1-46.3); Red Blood Cell Count 5.09 M/mm3 (3.80-5.20); White Blood Cell Count 5.37 K/mm3 (4.00-11.30)
[2023-07-13 00:45] LABS: Albumin, Blood 3.4 g/dL (3.4-5.0); Albumin/Globulin Ratio 0.9 (0.8-1.8); Bilirubin, Total 0.7 mg/dL (0.1-1.0); Bun/Creatinine Ratio 19.8 (12.0-20.0); Calcium, Blood 9.8 mg/dL (8.5-10.1); Creatinine, Blood 2.12 mg/dL (0.40-1.00); Globulin, Blood 3.9 g/dL (2.2-4.0); Potassium, Blood 3.7 mmol/L (3.5-5.5); Total Protein, Blood 7.3 g/dL (6.4-8.2)
[2023-07-13] MEDS ORDERED: METR500 PO (01:59)
[2023-07-13] MEDS ORDERED: CEPH500 PO (01:59)
[2023-07-13 03:41] VITALS: BP 111/70
== END 2023-07-13 03:42 | disposition home or self-care (01) ==
LOC: ER 21:15
PROVIDERS: Emergency Medicine
DX: K29.80 Duodenitis without bleeding (principal); I10 Essential (primary) hypertension; G43.909 Migraine, unspecified, not intractable, without status migrainosus; Z91.040 Latex allergy status; Z91.018 Allergy to other foods; Z88.8 Allergy status to other drugs, medicaments and biological substances; Z79.51 Long term (current) use of inhaled steroids; Z79.2 Long term (current) use of antibiotics; Z79.82 Long term (current) use of aspirin; Z79.899 Other long term (current) drug therapy
CPT/HCPCS: 70486; 74177; 80053; 85025; 96374; 99284-25; A9270; Q9967

== ENCOUNTER 2023-09-12 16:34 | Emergency (ER) | payer OTHER ==
[~2023-09-12] VITALS: Ht 157.5 cm; Wt 96.2 kg
[~2023-09-12 16:34] MED LIST changes: +CEPH500 PO; +METR500 PO
[2023-09-12 17:05] VITALS: BP 147/90
[2023-09-12] MEDS ORDERED: Naprosyn500 MG PO (17:12)
== END 2023-09-12 17:32 | disposition home or self-care (01) ==
LOC: ER 16:34
DX: K80.50 Calculus of bile duct without cholangitis or cholecystitis without obstruction (principal); Z91.040 Latex allergy status; Z91.018 Allergy to other foods; Z88.8 Allergy status to other drugs, medicaments and biological substances; Z88.1 Allergy status to other antibiotic agents; Z79.02 Long term (current) use of antithrombotics/antiplatelets; Z79.82 Long term (current) use of aspirin; K80.20 Calculus of gallbladder without cholecystitis without obstruction; N26.1 Atrophy of kidney (terminal); N20.0 Calculus of kidney
CPT/HCPCS: 76700; 96372; 99283-25; J1885

== ENCOUNTER 2023-09-20 00:48 | Emergency (ER) | payer OTHER ==
[~2023-09-20] VITALS: Ht 157.5 cm; Wt 91.6 kg
[~2023-09-20 00:48] MED LIST changes: +Naprosyn500 MG PO
[2023-09-20 01:52] LABS: BASOPHILS ABSOLUTE AUTO 0.05 K/mm3 (0.00-0.23); BASOPHILS PERCENT AUTO 1 % (0-2); EOSINOPHILS ABSOLUTE AUTO 0.12 K/mm3 (0.00-0.68); EOSINOPHILS PERCENT AUTO 1 % (0-6); Hematocrit 45.2 % (33.0-51.0); Hemoglobin 14.6 g/dL (11.5-16.0); IMMATURE GRAN ABSOLUTE AUTO 0.06 K/mm3 (0.00-0.10); IMMATURE GRAN PERCENT AUTO 1 % (0-1); LYMPHOCYTES ABSOLUTE AUTO 1.29 K/mm3 (0.84-5.20); LYMPHOCYTES PERCENT AUTO 14 % (21-46); MONOCYTES ABSOLUTE AUTO 0.56 K/mm3 (0.16-1.47); MONOCYTES PERCENT AUTO 6 % (4-13); Mean Corpuscular HGB 27.4 pg (26.0-34.0); Mean Corpuscular HGB Conc 32.3 g/dL (31.5-36.5); Mean Corpuscular Volume 85 fL (80-100); NEUTROPHILS ABSOLUTE AUTO 7.47 K/mm3 (1.96-9.15); NEUTROPHILS PERCENT AUTO 78 % (41-73); RDW Coefficient Variation 13.5 % (11.7-14.2); Red Blood Cell Count 5.32 M/mm3 (3.80-5.20); White Blood Cell Count 9.55 K/mm3 (4.00-11.30)
[2023-09-20 01:53] LABS: Mean Platelet Volume 11.7 fL (9.1-12.4); Platelet Count 231 K/mm3 (150-400)
[2023-09-20 02:07] LABS: Albumin, Blood 3.8 g/dL (3.4-5.0); Albumin/Globulin Ratio 0.9 (0.8-1.8); Bilirubin, Total 0.7 mg/dL (0.1-1.0); Bun/Creatinine Ratio 27.8 (12.0-20.0); Calcium, Blood 11.4 mg/dL (8.5-10.1); Creatinine, Blood 2.34 mg/dL (0.40-1.00); Globulin, Blood 4.2 g/dL (2.2-4.0); Potassium, Blood 4.6 mmol/L (3.5-5.5)
[2023-09-20 03:37] LABS: Bilirubin, Urine Neg (Neg); Blood, Urine Neg (Neg); Glucose Qualitative, Urine Neg (Neg); Ketones, Urine 2+ (Neg); Leukocyte Esterase, Urine 2+ (Neg); Nitrite, Urine Neg (Neg); Protein, Urine 1+ (Neg); Source, Urine Clean Catch; Specific Gravity, Urine 1.025 (1.003-1.022); Urobilinogen, Urine NORM (Normal)
[2023-09-20 03:39] LABS: Appearance, Urine Clear (Clear); Color, Urine Yellow (P-Yellow)
[2023-09-20 04:00] VITALS: BP 175/102
[2023-09-20 04:15] LABS: Amorphous Light (0-Heavy); Bacteria Mod /hpf; Granular Casts 0-2 /lpf (0); Red Blood Cells, Urine Not Seen /hpf (0-2); Squamous Epithelial Cells Rare /hpf (Few)
[2023-09-20] MEDS ORDERED: SULTRIDS PO (04:55)
[2023-09-20] MEDS ORDERED: ONDA4ODT MM (04:55)
[2023-09-21] MEDS ORDERED: LISI5 PO (06:28)
[2023-09-21] MEDS ORDERED: ONDA4ODT MM (09:04)
[2023-09-21] MEDS ORDERED: DOC250 PO (09:04)
[2023-09-21] MEDS ORDERED: HYDR1TAB94 PO (09:04)
== END 2023-09-20 05:27 | disposition home or self-care (01) ==
LOC: ER 00:48
PROVIDERS: Student in an Organized Health Care Education/Training Program
DX: N39.0 Urinary tract infection, site not specified (principal); K80.70 Calculus of gallbladder and bile duct without cholecystitis without obstruction; Z88.8 Allergy status to other drugs, medicaments and biological substances; Z88.1 Allergy status to other antibiotic agents; Z91.040 Latex allergy status; Z91.018 Allergy to other foods; Z79.899 Other long term (current) drug therapy; Z79.82 Long term (current) use of aspirin
CPT/HCPCS: 76705; 80053; 81001; 83690; 85025; 87077; 87086; 87186; 96361; 96374; 96375; 96376; 99284-25; A9270; J2405; J3010; J7030

== ENCOUNTER 2023-09-21 06:03 | Emergency (ER) | payer OTHER ==
[~2023-09-21] VITALS: Ht 160 cm; Wt 91.6 kg
[~2023-09-21 06:03] MED LIST changes: +ONDA4ODT MM; +SULTRIDS PO
[2023-09-21] MEDS ORDERED: LISI5 PO (06:28)
[2023-09-21 06:38] LABS: BASOPHILS ABSOLUTE AUTO 0.04 K/mm3 (0.00-0.23); BASOPHILS PERCENT AUTO 0 % (0-2); EOSINOPHILS ABSOLUTE AUTO 0.16 K/mm3 (0.00-0.68); EOSINOPHILS PERCENT AUTO 2 % (0-6); Hematocrit 43.5 % (33.0-51.0); Hemoglobin 13.9 g/dL (11.5-16.0); IMMATURE GRAN ABSOLUTE AUTO 0.03 K/mm3 (0.00-0.10); IMMATURE GRAN PERCENT AUTO 0 % (0-1); LYMPHOCYTES ABSOLUTE AUTO 1.26 K/mm3 (0.84-5.20); LYMPHOCYTES PERCENT AUTO 14 % (21-46); MONOCYTES ABSOLUTE AUTO 0.56 K/mm3 (0.16-1.47); MONOCYTES PERCENT AUTO 6 % (4-13); Mean Corpuscular HGB 27.1 pg (26.0-34.0); Mean Corpuscular Volume 85 fL (80-100); Mean Platelet Volume 11.7 fL (9.1-12.4); NEUTROPHILS ABSOLUTE AUTO 7.09 K/mm3 (1.96-9.15); NEUTROPHILS PERCENT AUTO 78 % (41-73); Platelet Count 234 K/mm3 (150-400); RDW Coefficient Variation 13.2 % (11.7-14.2); RDW Standard Deviation 41.1 fL (35.1-46.3); Red Blood Cell Count 5.12 M/mm3 (3.80-5.20); White Blood Cell Count 9.14 K/mm3 (4.00-11.30)
[2023-09-21 07:04] LABS: Albumin, Blood 3.4 g/dL (3.4-5.0); Albumin/Globulin Ratio 0.8 (0.8-1.8); Bilirubin, Total 0.4 mg/dL (0.1-1.0); Bun/Creatinine Ratio 22.3 (12.0-20.0); Calcium, Blood 10.3 mg/dL (8.5-10.1); Creatinine, Blood 1.97 mg/dL (0.40-1.00); Globulin, Blood 4.2 g/dL (2.2-4.0); Potassium, Blood 4.3 mmol/L (3.5-5.5); Total Protein, Blood 7.6 g/dL (6.4-8.2)
[2023-09-21 07:23] LABS: Source, Urine Clean Catch
[2023-09-21 07:38] LABS: Appearance, Urine Clear (Clear); Bilirubin, Urine Neg (Neg); Blood, Urine Neg (Neg); Color, Urine Yellow (P-Yellow); Glucose Qualitative, Urine Neg (Neg); Ketones, Urine 3+ (Neg); Leukocyte Esterase, Urine Neg (Neg); Nitrite, Urine Neg (Neg); Protein, Urine 1+ (Neg); Specific Gravity, Urine 1.025 (1.003-1.022); Urobilinogen, Urine NORM (Normal)
[2023-09-21] MEDS ORDERED: ONDA4ODT MM (09:04)
[2023-09-21] MEDS ORDERED: DOC250 PO (09:04)
[2023-09-21] MEDS ORDERED: HYDR1TAB94 PO (09:04)
[2023-09-21 09:23] VITALS: BP 152/101
== END 2023-09-21 09:39 | disposition home or self-care (01) ==
LOC: ER 06:03
PROVIDERS: Emergency Medicine
DX: K80.20 Calculus of gallbladder without cholecystitis without obstruction (principal); N18.9 Chronic kidney disease, unspecified; I25.10 Atherosclerotic heart disease of native coronary artery without angina pectoris; Z79.02 Long term (current) use of antithrombotics/antiplatelets; Z79.899 Other long term (current) drug therapy; Z79.82 Long term (current) use of aspirin; I25.2 Old myocardial infarction; Z88.1 Allergy status to other antibiotic agents; Z91.040 Latex allergy status; Z88.8 Allergy status to other drugs, medicaments and biological substances; Z91.018 Allergy to other foods
CPT/HCPCS: 71045; 80053; 83690; 83880; 84484; 85025; 93005; 93010; 96374; 96375; 99284-25; 99285-25; J2405; J3010

== ENCOUNTER 2023-09-21 21:35 | Emergency (ER) | payer OTHER ==
[~2023-09-21] VITALS: Ht 160 cm; Wt 104.3 kg
[~2023-09-21 21:35] MED LIST changes: +DOC250 PO; +HYDR1TAB94 PO; +LISI5 PO
[2023-09-21 21:57] LABS: BASOPHILS ABSOLUTE AUTO 0.04 K/mm3 (0.00-0.23); BASOPHILS PERCENT AUTO 0 % (0-2); EOSINOPHILS ABSOLUTE AUTO 0.19 K/mm3 (0.00-0.68); EOSINOPHILS PERCENT AUTO 2 % (0-6); Hematocrit 41.6 % (33.0-51.0); Hemoglobin 13.3 g/dL (11.5-16.0); IMMATURE GRAN ABSOLUTE AUTO 0.05 K/mm3 (0.00-0.10); IMMATURE GRAN PERCENT AUTO 0 % (0-1); LYMPHOCYTES ABSOLUTE AUTO 1.67 K/mm3 (0.84-5.20); LYMPHOCYTES PERCENT AUTO 15 % (21-46); MONOCYTES PERCENT AUTO 6 % (4-13); Mean Corpuscular HGB 27.7 pg (26.0-34.0); Mean Corpuscular Volume 87 fL (80-100); Mean Platelet Volume 11.7 fL (9.1-12.4); NEUTROPHILS ABSOLUTE AUTO 8.85 K/mm3 (1.96-9.15); NEUTROPHILS PERCENT AUTO 77 % (41-73); Platelet Count 237 K/mm3 (150-400); RDW Coefficient Variation 13.3 % (11.7-14.2); RDW Standard Deviation 42.3 fL (35.1-46.3); Red Blood Cell Count 4.81 M/mm3 (3.80-5.20)
[2023-09-21 22:13] LABS: Albumin, Blood 3.3 g/dL (3.4-5.0); Albumin/Globulin Ratio 0.8 (0.8-1.8); Bilirubin, Total 0.3 mg/dL (0.1-1.0); Bun/Creatinine Ratio 21.3 (12.0-20.0); Calcium, Blood 10.6 mg/dL (8.5-10.1); Creatinine, Blood 1.74 mg/dL (0.40-1.00); Globulin, Blood 4.2 g/dL (2.2-4.0); Total Protein, Blood 7.5 g/dL (6.4-8.2)
[2023-09-22 03:20] VITALS: BP 155/103
== END 2023-09-22 03:19 | disposition home or self-care (01) ==
LOC: ER 21:35
PROVIDERS: Emergency Medicine
DX: R07.9 Chest pain, unspecified (principal); I25.2 Old myocardial infarction; I25.10 Atherosclerotic heart disease of native coronary artery without angina pectoris; Z88.1 Allergy status to other antibiotic agents; Z91.040 Latex allergy status; Z88.8 Allergy status to other drugs, medicaments and biological substances; Z91.018 Allergy to other foods; Z79.899 Other long term (current) drug therapy; Z79.82 Long term (current) use of aspirin
CPT/HCPCS: 71045; 80053; 83690; 83880; 84484; 85025; 93005; 93010; 96374; 96375; 99284-25; 99285-25; J2405; J3010

== ENCOUNTER 2023-09-23 08:03 | Inpatient (IN) | payer OTHER ==
[~2023-09-23] VITALS: Ht 157.5 cm; Wt 90.7 kg
[2023-09-23 08:59] LABS: BASOPHILS ABSOLUTE AUTO 0.07 K/mm3 (0.00-0.23); BASOPHILS PERCENT AUTO 1 % (0-2); EOSINOPHILS ABSOLUTE AUTO 0.11 K/mm3 (0.00-0.68); EOSINOPHILS PERCENT AUTO 1 % (0-6); Hematocrit 42.6 % (33.0-51.0); Hemoglobin 14.2 g/dL (11.5-16.0); IMMATURE GRAN ABSOLUTE AUTO 0.08 K/mm3 (0.00-0.10); IMMATURE GRAN PERCENT AUTO 1 % (0-1); LYMPHOCYTES ABSOLUTE AUTO 2.31 K/mm3 (0.84-5.20); LYMPHOCYTES PERCENT AUTO 15 % (21-46); MONOCYTES ABSOLUTE AUTO 0.95 K/mm3 (0.16-1.47); MONOCYTES PERCENT AUTO 6 % (4-13); Mean Corpuscular HGB 27.4 pg (26.0-34.0); Mean Corpuscular HGB Conc 33.3 g/dL (31.5-36.5); Mean Platelet Volume 11.8 fL (9.1-12.4); NEUTROPHILS ABSOLUTE AUTO 11.75 K/mm3 (1.96-9.15); NEUTROPHILS PERCENT AUTO 77 % (41-73); Platelet Count 324 K/mm3 (150-400); RDW Coefficient Variation 13.5 % (11.7-14.2); Red Blood Cell Count 5.18 M/mm3 (3.80-5.20); White Blood Cell Count 15.27 K/mm3 (4.00-11.30)
[2023-09-23 09:01] LABS: Mean Corpuscular Volume 82 fL (80-100)
[2023-09-23 09:16] LABS: Albumin, Blood 3.4 g/dL (3.4-5.0); Albumin/Globulin Ratio 0.7 (0.8-1.8); Bilirubin, Total 0.5 mg/dL (0.1-1.0); Bun/Creatinine Ratio 20.4 (12.0-20.0); Calcium, Blood 11.6 mg/dL (8.5-10.1); Creatinine, Blood 1.67 mg/dL (0.40-1.00); Globulin, Blood 4.6 g/dL (2.2-4.0); Potassium, Blood 4.1 mmol/L (3.5-5.5)
--- NOTE | 2023-09-23 12:55 | NUR ---
ARRIVAL TO SURGICAL UNIT IN , SBA TO BED. HEATING PAD GIVEN FOR ABD. REPORTS PAIN IS TOLERABLE AT THIS TIME BUT C/O ACID REFLUX. ASSESSMENT CHARTED. PT NPO FOR PLANNED HIDA SCAN & AWAITING SURGICAL CONSULT.
[2023-09-23 12:57] VITALS: BP 115/73
--- NOTE | 2023-09-23 14:00 | NUR ---
HIDA SCAN UPDATE PER [facility]UC MED, SCAN WILL HAPPEN TOMORROW AT 0900 OR 0930. STRICT NPO AFTER MIDNIGHT & NO NARCOTICS FOR [address] SC[address] LEWIS & PT UPDATED. CLEAR LQ's OK'd UNTIL MMIDNIGHT PER DR LEWIS. PT AGREEABLE & OK w/ PLAN.
[2023-09-23 14:27] VITALS: BP 125/87
--- NOTE | 2023-09-23 18:21 | NUR ---
SHIFT SUMMARY SINCE ARRIVAL TO UNIT, PT HAS BEEN COOPERATIVE & PLEASANT. PAIN IS CONTROLLED w/ NORCO & TOLERATING CLEAR LQs. PT EDUCATED ON STRICT NPO AT MIDNIGHT & NO NARCOTICS 6 HOURS PRIOR; VERY AGREEABLE.
[2023-09-23 19:18] VITALS: BP 103/62
[2023-09-24 02:50] VITALS: BP 101/66
[2023-09-24 06:01] LABS: BASOPHILS ABSOLUTE AUTO 0.04 K/mm3 (0.00-0.23); BASOPHILS PERCENT AUTO 1 % (0-2); EOSINOPHILS ABSOLUTE AUTO 0.25 K/mm3 (0.00-0.68); EOSINOPHILS PERCENT AUTO 3 % (0-6); Hemoglobin 10.8 g/dL (11.5-16.0); IMMATURE GRAN ABSOLUTE AUTO 0.02 K/mm3 (0.00-0.10); IMMATURE GRAN PERCENT AUTO 0 % (0-1); LYMPHOCYTES ABSOLUTE AUTO 1.59 K/mm3 (0.84-5.20); LYMPHOCYTES PERCENT AUTO 21 % (21-46); MONOCYTES ABSOLUTE AUTO 0.53 K/mm3 (0.16-1.47); MONOCYTES PERCENT AUTO 7 % (4-13); Mean Corpuscular HGB 27.3 pg (26.0-34.0); Mean Corpuscular HGB Conc 31.8 g/dL (31.5-36.5); Mean Corpuscular Volume 86 fL (80-100); Mean Platelet Volume 11.8 fL (9.1-12.4); NEUTROPHILS ABSOLUTE AUTO 5.31 K/mm3 (1.96-9.15); NEUTROPHILS PERCENT AUTO 69 % (41-73); Platelet Count 196 K/mm3 (150-400); RDW Coefficient Variation 13.6 % (11.7-14.2); RDW Standard Deviation 42.5 fL (35.1-46.3); Red Blood Cell Count 3.96 M/mm3 (3.80-5.20); White Blood Cell Count 7.74 K/mm3 (4.00-11.30)
[2023-09-24 06:41] LABS: Albumin, Blood 2.6 g/dL (3.4-5.0); Albumin/Globulin Ratio 0.7 (0.8-1.8); Bilirubin, Total 0.2 mg/dL (0.1-1.0); Bun/Creatinine Ratio 17.3 (12.0-20.0); Calcium, Blood 9.8 mg/dL (8.5-10.1); Creatinine, Blood 1.56 mg/dL (0.40-1.00); Globulin, Blood 3.5 g/dL (2.2-4.0); Potassium, Blood 4.3 mmol/L (3.5-5.5); Total Protein, Blood 6.1 g/dL (6.4-8.2)
[2023-09-24 07:31] VITALS: BP 121/71
--- NOTE | 2023-09-24 07:36 | NUR ---
PT VSS T/O NIGHT. PT DENIED CP/PRESSURE. PT MED FOR ABD PAIN X1 W/REP RELIEF. PT HAS BEEN NPO SINCE MIDNIGHT FOR PLAN FOR HIDA SCAN THIS AM. PT DENIED N/V. PLAN FOR IMAGING TODAY TO AWAIT SURGICAL PLANNING.
[2023-09-24 09:43] LABS: Magnesium, Blood 1.7 mg/dL (1.6-2.4); Phosphorus, Blood 2.5 mg/dL (2.5-4.9)
[2023-09-24 14:08] VITALS: BP 105/56
[2023-09-24 19:19] VITALS: BP 113/64
--- NOTE | 2023-09-24 20:29 | NUR ---
SHIFT SUMMARY HAD HIDE SCAN (AROUND 0930) & ECHO (AROUND 1430) DONE TODAY. AFTER DR SOLO ROUNDED THIS AFTERNOON, WAS ABLE TO TOLERATE A RENAL DIET WELL. PAIN TOLERABLE, DENIES N/V. SL AFTER x 1 500 ML IVF COMPLETED.
[2023-09-25 05:39] LABS: Albumin, Blood 2.5 g/dL (3.4-5.0); Albumin/Globulin Ratio 0.7 (0.8-1.8); Bilirubin, Total 0.2 mg/dL (0.1-1.0); Calcium, Blood 9.8 mg/dL (8.5-10.1); Creatinine, Blood 1.65 mg/dL (0.40-1.00); Globulin, Blood 3.6 g/dL (2.2-4.0); Potassium, Blood 4.4 mmol/L (3.5-5.5); Total Protein, Blood 6.1 g/dL (6.4-8.2)
[2023-09-25 05:48] LABS: BASOPHILS ABSOLUTE AUTO 0.03 K/mm3 (0.00-0.23); BASOPHILS PERCENT AUTO 1 % (0-2); EOSINOPHILS ABSOLUTE AUTO 0.19 K/mm3 (0.00-0.68); EOSINOPHILS PERCENT AUTO 3 % (0-6); Hematocrit 33.2 % (33.0-51.0); Hemoglobin 10.7 g/dL (11.5-16.0); IMMATURE GRAN ABSOLUTE AUTO 0.03 K/mm3 (0.00-0.10); IMMATURE GRAN PERCENT AUTO 1 % (0-1); LYMPHOCYTES PERCENT AUTO 17 % (21-46); MONOCYTES ABSOLUTE AUTO 0.42 K/mm3 (0.16-1.47); MONOCYTES PERCENT AUTO 7 % (4-13); Mean Corpuscular HGB 27.5 pg (26.0-34.0); Mean Corpuscular HGB Conc 32.2 g/dL (31.5-36.5); Mean Corpuscular Volume 85 fL (80-100); NEUTROPHILS ABSOLUTE AUTO 4.24 K/mm3 (1.96-9.15); NEUTROPHILS PERCENT AUTO 72 % (41-73); RDW Coefficient Variation 13.4 % (11.7-14.2); RDW Standard Deviation 41.4 fL (35.1-46.3); Red Blood Cell Count 3.89 M/mm3 (3.80-5.20); White Blood Cell Count 5.91 K/mm3 (4.00-11.30)
[2023-09-25 06:08] LABS: Platelet Count 156 K/mm3 (150-400)
[2023-09-25 07:06] VITALS: BP 102/67
--- NOTE | 2023-09-25 07:32 | NUR ---
PT VSS T/O NIGHT. PT MED FOR RUQ PAIN X1 W/REP RELIEF, DECLINED NEED FOR ADDITIONAL PAIN MEDS. PT KHALIDA SM AMT PO, DENIED N/V, DID REP INC IN ABD DISCOMFORT AFTER EATIING. PT NPO POST MIDNIGHT TO AWAIT SURGERY PLANS.
[2023-09-25 10:20] VITALS: BP 126/83
--- NOTE | 2023-09-25 10:30 | NUR ---
IV SITE 20G R WRIST D&I/PATENT. FLUSHED WITH 5NS.
--- NOTE | 2023-09-25 10:41 | NUR ---
09/25/23 1041 Sheyla Black History, Chart, Medications and Allergies reviewed before start of procedure.MONITOR INTACT WITH CONTINUOUS PULSE OXIMETRY, CONTINUOUS END TITAL CO2, AND INTERMITTENT BLOOD PRESSURE.3-LEAD EKG REVIEWED WITH PHYSICIAN PRIOR TO START OF PROCEDURE.4% LIDO NEB GIVEN IN PRE-OP Bite Block PlacedPATIENT DETERMINED TO BE ASA APPROPRIATE FOR MAC-PROVIDED BY DR. ALATORRE.
[2023-09-25 11:16] VITALS: BP 109/77
[2023-09-25 11:46] VITALS: BP 117/78
[2023-09-25 12:12] VITALS: BP 116/81
[2023-09-25] MEDS ORDERED: PANT40 PO (15:24)
[2023-09-25] MEDS ORDERED: LEVO750 PO (15:24)
[2023-09-25] MEDS ORDERED: ATOR40TA PO (15:24)
[2023-09-25] MEDS ORDERED: VISBIOME 112.51 EACH PO (15:24)
--- NOTE | 2023-09-25 15:42 | NUR ---
DISCHARGE PT DISCHARGED HOME FROM UNIT AT APROX 1542. PT GIVEN WRITTEN AND VERBAL DISCHARGE INSTRUCTIONS AND VERBALIZED UNDERSTANDING OF THESE INSTRUCTIONS. NEW RX'S FAXED TO [facility]. PT TEARFUL UPON DC, WHEN ASKED PT STATES "I AM FINE, ITS TIME FOR ME TO GO HOME". "I DON'T WANT TO TALK". WC TO OUTSIDE, PT STATES RIDE IS ON THEIR WAY.
== END 2023-09-25 16:12 | disposition home or self-care (01) | DRG 377 ==
LOC: ER 08:03 → SURS 08:04
PROVIDERS: Emergency Medicine; Family Medicine; Surgery; ADMIT Hospitalist
PROC: 0DB78ZX Excision of Stomach, Pylorus, Via Natural or Artificial Opening Endoscopic, Diagnostic (ICD-10-PCS; 2023-09-25)
PROC: 0DB48ZX Excision of Esophagogastric Junction, Via Natural or Artificial Opening Endoscopic, Diagnostic (ICD-10-PCS; principal; 2023-09-25 10:00)
DX: K26.4 Chronic or unspecified duodenal ulcer with hemorrhage (principal); I21.A1 Myocardial infarction type 2; I13.0 Hypertensive heart and chronic kidney disease with heart failure and stage 1 through stage 4 chronic kidney disease, or unspecified chronic kidney disease; I50.22 Chronic systolic (congestive) heart failure; I42.7 Cardiomyopathy due to drug and external agent; N39.0 Urinary tract infection, site not specified; D62 Acute posthemorrhagic anemia; K80.20 Calculus of gallbladder without cholecystitis without obstruction; K29.81 Duodenitis with bleeding; E83.52 Hypercalcemia; N18.30 Chronic kidney disease, stage 3 unspecified; K22.11 Ulcer of esophagus with bleeding; I25.10 Atherosclerotic heart disease of native coronary artery without angina pectoris; K21.9 Gastro-esophageal reflux disease without esophagitis; E86.0 Dehydration; B96.20 Unspecified Escherichia coli [E. coli] as the cause of diseases classified elsewhere; K44.9 Diaphragmatic hernia without obstruction or gangrene; J45.909 Unspecified asthma, uncomplicated; F15.90 Other stimulant use, unspecified, uncomplicated; K29.41 Chronic atrophic gastritis with bleeding; B96.81 Helicobacter pylori [H. pylori] as the cause of diseases classified elsewhere; T43.655A Adverse effect of methamphetamines, initial encounter; Z95.5 Presence of coronary angioplasty implant and graft; Z98.51 Tubal ligation status; Z87.81 Personal history of (healed) traumatic fracture; Z87.891 Personal history of nicotine dependence; Z88.1 Allergy status to other antibiotic agents; Z91.040 Latex allergy status; Z91.018 Allergy to other foods; Z79.02 Long term (current) use of antithrombotics/antiplatelets; Z79.811 Long term (current) use of aromatase inhibitors; Z79.899 Other long term (current) drug therapy; Z79.82 Long term (current) use of aspirin; I25.2 Old myocardial infarction; Z87.19 Personal history of other diseases of the digestive system; Z71.51 Drug abuse counseling and surveillance of drug abuser; Z91.148 Patient's other noncompliance with medication regimen for other reason; Z87.820 Personal history of traumatic brain injury; R07.9 Chest pain, unspecified
CPT/HCPCS: 36415; 71045; 78226; 80053; 82306; 82330; 82652; 83690; 83735; 83880; 83970; 84100; 84484; 85025; 88305; 88342; 93005; 93010; 96361; 96365; 96366; 96374; 96375; 99284-25; 99285-25; A9270; A9537; C8929; C9113; G0378; J1956; J2001; J2405; J2704; J3010; J7030; J7040; J7120; Q9957

== ENCOUNTER 2023-12-11 09:22 | Day surgery (SDC) | payer OTHER ==
[~2023-12-11] VITALS: Ht 157.5 cm; Wt 96.9 kg
[~2023-12-11 09:22] MED LIST changes: +ATOR40TA PO; +LEVO750 PO; +VISBIOME 112.51 EACH PO
[2023-12-11] MEDS ORDERED: TORSE20 (09:49)
[2023-12-11] MEDS ORDERED: Aspir 8181 MG (09:49)
[2023-12-11 11:43] VITALS: BP 122/77
== END 2023-12-11 11:00 | disposition home or self-care (01) ==
LOC: ORSCSDS 09:22
PROVIDERS: Surgery
PROC: 0DJ08ZZ Inspection of Upper Intestinal Tract, Via Natural or Artificial Opening Endoscopic (ICD-10-PCS; principal; 2023-12-11 10:45)
DX: Z87.19 Personal history of other diseases of the digestive system (principal); Z87.11 Personal history of peptic ulcer disease; F15.20 Other stimulant dependence, uncomplicated; I25.10 Atherosclerotic heart disease of native coronary artery without angina pectoris; I12.9 Hypertensive chronic kidney disease with stage 1 through stage 4 chronic kidney disease, or unspecified chronic kidney disease; N18.9 Chronic kidney disease, unspecified; I21.9 Acute myocardial infarction, unspecified; I10 Essential (primary) hypertension; D50.9 Iron deficiency anemia, unspecified; Z79.82 Long term (current) use of aspirin; Z79.899 Other long term (current) drug therapy; Z79.02 Long term (current) use of antithrombotics/antiplatelets
CPT/HCPCS: J0461; J2001; J2405; J2704; J7120; Q9968

== ENCOUNTER 2025-05-14 13:19 | Emergency (ER) | payer OTHER ==
[~2025-05-14] VITALS: Ht 160 cm; Wt 117.9 kg
[~2025-05-14 13:19] MED LIST changes: +Aspir 8181 MG; +METOPROLOL SUCC25 MG PO; +TORSE20
[2025-05-14] MEDS ORDERED: NS 1,000 ML IV SCH (14:30)
[2025-05-14] MEDS ORDERED: Ondansetron HCl 2 MG / ML 2ML Vial IV ONE (14:35)
[2025-05-14 14:36] LABS: BASOPHILS ABSOLUTE AUTO 0.08 K/mm3 (0.00-0.23); BASOPHILS PERCENT AUTO 1 % (0-2); EOSINOPHILS ABSOLUTE AUTO 0.15 K/mm3 (0.00-0.68); EOSINOPHILS PERCENT AUTO 2 % (0-6); Hematocrit 46.7 % (33.0-51.0); Hemoglobin 14.1 g/dL (11.5-16.0); IMMATURE GRAN ABSOLUTE AUTO 0.02 K/mm3 (0.00-0.10); IMMATURE GRAN PERCENT AUTO 0 % (0-1); LYMPHOCYTES ABSOLUTE AUTO 1.56 K/mm3 (0.84-5.20); LYMPHOCYTES PERCENT AUTO 17 % (21-46); MONOCYTES PERCENT AUTO 8 % (4-13); Mean Corpuscular HGB 26.3 pg (26.0-34.0); Mean Corpuscular HGB Conc 30.2 g/dL (31.5-36.5); Mean Corpuscular Volume 87 fL (80-100); Mean Platelet Volume 12.1 fL (9.1-12.4); NEUTROPHILS ABSOLUTE AUTO 6.51 K/mm3 (1.96-9.15); NEUTROPHILS PERCENT AUTO 72 % (41-73); Platelet Count 232 K/mm3 (150-400); RDW Coefficient Variation 15.6 % (11.7-14.2); RDW Standard Deviation 48.9 fL (35.1-46.3); Red Blood Cell Count 5.36 M/mm3 (3.80-5.20); White Blood Cell Count 9.02 K/mm3 (4.00-11.30)
[2025-05-14 14:38] LABS: Albumin, Blood 3.5 g/dL (3.4-5.0); Albumin/Globulin Ratio 0.8 (0.8-1.8); Bilirubin, Total 0.5 mg/dL (0.1-1.0); Bun/Creatinine Ratio 13.6 (12.0-20.0); Calcium, Blood 10.4 mg/dL (8.5-10.1); Creatinine, Blood 1.91 mg/dL (0.40-1.00); Globulin, Blood 4.4 g/dL (2.2-4.0); Potassium, Blood 4.3 mmol/L (3.5-5.5); Total Protein, Blood 7.9 g/dL (6.4-8.2)
[2025-05-14 16:49] VITALS: BP 120/70
[2025-05-15] MEDS ORDERED: LIDO700A20 TOP (10:11)
== END 2025-05-14 16:51 | disposition home or self-care (01) ==
LOC: ER 13:19
PROVIDERS: Emergency Medicine
DX: R55 Syncope and collapse (principal); E86.0 Dehydration; R11.2 Nausea with vomiting, unspecified; I10 Essential (primary) hypertension; K21.9 Gastro-esophageal reflux disease without esophagitis; Z91.040 Latex allergy status; Z79.899 Other long term (current) drug therapy; Z91.018 Allergy to other foods; Z79.82 Long term (current) use of aspirin
CPT/HCPCS: 36415; 80053; 82947; 84484; 85025; 93005; 93010; 96361; 96374; 99284-25; J2405; J7030

== ENCOUNTER 2025-05-15 05:25 | Emergency (ER) | payer OTHER ==
[~2025-05-15] VITALS: Ht 160 cm; Wt 117.9 kg
[2025-05-15] MEDS ORDERED: Acetaminophen 500 MG Tab PO ONE (06:40)
[2025-05-15] MEDS ORDERED: Lidocaine 4% 1 Patch TOP ONE (06:40)
[2025-05-15] MEDS ORDERED: LIDO700A20 TOP (10:11)
[2025-05-15 10:31] VITALS: BP 142/65
== END 2025-05-15 10:32 | disposition home or self-care (01) ==
LOC: ER 05:25
DX: S20.212A Contusion of left front wall of thorax, initial encounter (principal); W19.XXXA Unspecified fall, initial encounter; I11.0 Hypertensive heart disease with heart failure; I50.20 Unspecified systolic (congestive) heart failure; I25.10 Atherosclerotic heart disease of native coronary artery without angina pectoris; I25.2 Old myocardial infarction; K21.9 Gastro-esophageal reflux disease without esophagitis; Z88.1 Allergy status to other antibiotic agents; Z91.040 Latex allergy status; Z88.8 Allergy status to other drugs, medicaments and biological substances; Z91.018 Allergy to other foods; Z79.82 Long term (current) use of aspirin; Z79.899 Other long term (current) drug therapy
CPT/HCPCS: 71046; 84484; 93005; 93010; 99284-25; A9270